=== PATIENT | male | born 1990 | race Caucasian/White ===

== ENCOUNTER → 2020-06-17 13:43 | Outpatient (BNVA) | payer SELFPAY | PROVIDERS: Visit Provider Physician Assistant | DX: Z02.79 Encounter for issue of other medical certificate (principal) ==

== ENCOUNTER → 2022-04-01 11:06 | Outpatient (BNVA) | payer SELFPAY | PROVIDERS: Visit Provider Physician Assistant | DX: Z02.79 Encounter for issue of other medical certificate (principal) ==

== ENCOUNTER 2022-04-21 09:19 | Emergency (ER) | payer OTHER, SELFPAY ==
--- NOTE | ~2022-04-21 | CT_ITS ---
EXAMINATION: CT ABDOMEN AND PELVIS WITHOUT CONTRAST CLINICAL INFORMATION: Lower abdominal/left-sided pain COMPARISON: None TECHNIQUE: Multidetector volumetric imaging was performed from the superior aspect of the liver through the pubic symphysis. Sagittal and coronal reformatted images were obtained on the technologist's workstation. This CT examination was performed using dose optimization techniques as appropriate, variously including the following: *Automated exposure control *Adjustment of mA and/or kV according to patient size (this includes techniques or standardized protocols for targeted exams where dose is matched to indication/reason for exam; i.e. extremities or head) *Use of iterative reconstruction technique DLP: 785 mGy-cm FINDINGS: LUNG BASES: The visualized lung bases are unremarkable. LIVER, GALLBLADDER, AND BILIARY TREE: The liver is enlarged at 18.7 cm in greatest length and demonstrates decreased attenuation consistent with hepatic steatosis. Focal fatty sparing adjacent to the gallbladder fossa is noted. No focal hepatic lesion or biliary ductal dilatation is present. The gallbladder is unremarkable with no evidence of radiopaque gallstones, gallbladder wall thickening, or obvious pericholecystic inflammatory changes. PANCREAS: Unremarkable. SPLEEN: Unremarkable. ADRENAL GLANDS: Unremarkable. KIDNEYS AND URETERS: The kidneys are normal in size, shape, and attenuation. No hydronephrosis, hydroureter, or calculi seen. No perinephric stranding. BLADDER: Unremarkable. GASTROINTESTINAL TRACT: The small and large bowel are unremarkable aside from a few scattered colonic diverticula without diverticulitis. The appendix is unremarkable. ABDOMINAL WALL: No significant hernia is appreciated. LYMPH NODES: No retroperitoneal lymphadenopathy is seen. VASCULAR: Unremarkable. PELVIC VISCERA: Prostate and seminal vesicles appear normal. OSSEOUS STRUCTURES: Unremarkable. CT/CT abdomen pelvis wo IV con IMPRESSION: 1. A cause for the patient's left lower quadrant pain has not been found. 2. Incidental note made of an enlarged fatty liver and a few scattered colonic diverticula without diverticulitis. Fleischner guidelines were followed.
[2022-04-21 09:29] VITALS: BP 168/93; PULSE 115; RESP 16; TEMP 36.8; O2SAT 98; BMI 38.9
--- NOTE | 2022-04-21 09:55 | ED.MALEGU ---
HPI - Male Genitourinary General Chief complaint: Urogenital-Male Stated complaint: bladder pain Time Seen by Provider: 04/21/22 09:41 Source: patient Mode of arrival: ambulatory Limitations: no limitations History of Present Illness HPI Narrative: This is 31-year-old male with history of UTIs who presents with lower abdominal discomfort since yesterday. Patient also reported some blood in his semen noted after ejaculation. No back pain, dysuria, frequency or urgency of urine. No fevers, chills, vomiting, diarrhea or constipation. No testicular pain or penile pain. No rashes or lesions. Patient is sexually active with 1 female partner. No new sexual partners. He describes the pain as pressure which is worsened with urination Related Data Allergies Allergy/AdvReac Type Severity Reaction Status Date / Time No Known Allergies Allergy Unverified 03/12/20 16:14 Review of Systems Review of Systems: Yes all other systems are reviewed and are negative Constitutional: Constitutional: Reports no additional constitutional complaints, Denies body ache(s), Denies chills, Denies fever(s), Denies headache(s) and Denies weakness Eyes: Eyes: Reports no additional eye complaints and Denies change in vision ENT: Reports system reviewed and no additional complaints, except as documented, Denies dizziness, Denies headache(s), Denies nasal congestion, Denies nasal discharge and Denies neck pain Cardiovascular: Cardiovascular: Reports no additional cardiovascular complaints, Denies chest pain, Denies leg edema and Denies dyspnea Respiratory: Respiratory: Reports no additional respiratory complaints, Denies cough and Denies dyspnea Gastrointestinal: Gastrointestinal: Reports no additional gastrointestinal complaints, Reports abdominal pain, Denies diarrhea, Denies nausea and Denies vomiting Genitourinary: Genitourinary: Denies urinary incontinence Musculoskeletal: Musculoskeletal: Reports no additional musculoskeletal complaints, Denies back pain, Denies arthralgias, Denies joint swelling, Denies neck pain, Denies numbness and Denies tingling Integumentary/Breasts: Skin/Breast: Reports system reviewed and no additional complaints, except as docu and Denies rash Neurologic: Reports system reviewed and no additional complaints, except as documented, Denies Abnormal speech present, Denies dizziness, Denies headache(s), Denies numbness, Denies tingling and Denies weakness [facility] Past Medical History Attestation statement: The following information was validated with the patient. Source: old records reviewed and nursing notes reviewed Social History Social History Advance Directives: No Advance Directives Information Provided: No Physical Exam Vital Signs: Vital Signs: Last Vital Signs Temp 98.2 F 04/21/22 09:29 Pulse 90 04/21/22 10:43 Resp 14 04/21/22 10:43 BP 147/91 H 04/21/22 10:43 Pulse Ox 99 04/21/22 10:43 O2 Del Method 04/21/22 10:43 BMI result Body Mass Index 38.9 Const: General: cooperative, healthy appearing, comfortable and no acute distress Orientation/consciousness: patient oriented x3 Limitations: no limitations HEENT: Head: Yes normal to inspection Ears: hearing grossly normal bilaterally General nose exam: Normal external nose present Face and sinus: Yes normal facial exam Mouth: Normal oral and palatal mucosa present Throat: Yes posterior oropharynx normal Eyes: General: appearance normal, both eyes and all related structures Pupils: Equal, round and reactive pupils present Neck: Neck: Yes normal visual inspection Chest: Chest palpation & inspection: normal inspection of the chest Resp: Effort & Inspection: normal respiratory effort Auscultation: clear to auscultation bilaterally Cardio: Rate: regular rate Rhythm: regular rhythm Peripheral pulses: Peripheral pulses 2+ throughout GI: Inspection: Yes normal to inspection Palpation (GI): Soft to palpation and Tenderness to palpation present (GI) suprapubicly Auscultation: normal bowel sounds : General: Yes no CVA tenderness Back/Spine/Pelvis: Back: no CVA tenderness Thoracic/Lumbar Spine: thoracic and lumbar spine normal to inspection Skin: General skin exam: no rashes or lesions noted Neuro: General: patient oriented x3, no focal motor deficits and normal sensation to monofilament Cranial nerves: Yes Equal, round and reactive pupils present Cognition (Neuro): normal cognition Speech: No Abnormal speech present Gait exam (Neuro): Normal gait present Motor exam (neuro): 5/5 motor strength present throughout Extrem: General: Yes normal to inspection Course Course Course Narrative: Labs unremarkable. UA shows no signs infection. Will check CT abdomen and pelvis to rule out renal colic, appendicitis Reevaluation(s) Reevaluation #1: 1230-CT abdomen pelvis show no acute finding. Appendix is visualized and unremarkable. Testing for gonorrhea and chlamydia were sent. Patient is aware that he will need to return if his testing is positive. He is not concern for STD exposure and he does not want to be treated prophylactically. Reviewed worrisome signs and symptoms of when to return to the emergency room. Comfortable plan for discharge home. MDM - Male Genitourinary MDM Narrative Medical decision making narrative: 31-year-old male here with suprapubic pressure and discomfort with urination with some blood noted in his semen after ejaculation yesterday. History of UTIs and feels similar to this. No CVA tenderness. Abdomen is and nonfocal. Patient overall nontoxic. No reports of colicky pain or CVA tenderness to suggest renal colic or pyelonephritis. Patient has low concern for STDs. He is in a monogamous relationship with 1 female partner with no new sexual partners. However will check CT and she, UA, labs. Consider STI, UTI Medical Records Attestation: I reviewed the patient's medical records. Lab Data Attestation: I reviewed the patient's lab results. Result diagrams: 04/21/22 10:04/21/22 10: Labs: Lab Results 04/21/22 04/21/22 04/21/22 Range/Units 10: 10: 10:27 WBC 6.7 (4.8-10.8) X10*3/uL RBC 5.36 (4.60-5.80) X10*6/uL Hgb 14.6 (14.0-18.0) g/dl Hct 45.4 (42.0-52.0) % MCV 84.7 (80.0-98.0) fL MCH 27.2 (27.0-33.0) pg MCHC 32.2 (31.0-36.0) g/dl RDW 12.3 (11.0-16.0) % Plt Count 304 (160-400) X10*3/uL MPV 11.0 (9.4-12.4) fL Immature Gran % (Auto) 0.5 H (0.0-0.4) % Neut % (Auto) 62.8 (45-73) % Lymph % (Auto) 29.9 (20-40) % Douglas % (Auto) 5.4 (2-11) % Eos % (Auto) 0.6 (0-4) % Baso % (Auto) 0.8 (0-2) % Lymph # (Auto) 2.0 (1.2-4.9) X10*3/uL Douglas # (Auto) 0.4 (0.1-1.2) X10*3/uL Eos # (Auto) 0.0 (0.0-0.4) X10*3/uL Baso # (Auto) 0.1 (0.0-0.2) X10*3/uL Abs Immat Gran (auto) 0.03 (0.00-0.03) X10*3/uL Absolute Neuts (auto) 4.2 (2.0-8.3) x10*3/uL Absolute Nucleated RBC 0.000 (0.0-0.012) X10*3/uL Nucleated RBC % (auto) 0.0 (0.0-0.2) /100WBC Sodium 141 (135-145) mmol/L Potassium 4.0 (3.3-5.1) mmol/L Chloride 106 (96-108) mmol/L Carbon Dioxide 22 (22-29) mmol/L Anion Gap 17 (12-20) BUN 14 (9-16) mg/dL Creatinine 1.15 (0.5-1.4) mg/dL Estim Creat Clear Calc 97.4 Estimated GFR > 60 Random Glucose 138 H (60-115) mg/dL Calcium 10.0 (8.4-10.2) mg/dL Urine Color Yellow Urine Appearance Clear Urine pH 5.5 (5.0-9.0) Ur Specific [place] 1.020 (1.005-1.025) Urine Protein Negative (Neg-Trace) mg/dL Urine Glucose (UA) Negative (Negative) mg/dL Urine Ketones Negative (Negative) mg/dL Urine Blood Negative (Negative) Urine Nitrite Negative (Negative) Ur Leukocyte Esterase Negative (Negative) Chlam trachomat DNA PCR N.gonorrhoeae DNA (PCR) 04/21/22 Range/Units 10:27 WBC (4.8-10.8) X10*3/uL RBC (4.60-5.80) X10*6/uL Hgb (14.0-18.0) g/dl Hct (42.0-52.0) % MCV (80.0-98.0) fL MCH (27.0-33.0) pg MCHC (31.0-36.0) g/dl RDW (11.0-16.0) % Plt Count (160-400) X10*3/uL MPV (9.4-12.4) fL Immature Gran % (Auto) (0.0-0.4) % Neut % (Auto) (45-73) % Lymph % (Auto) (20-40) % Douglas % (Auto) (2-11) % Eos % (Auto) (0-4) % Baso % (Auto) (0-2) % Lymph # (Auto) (1.2-4.9) X10*3/uL Douglas # (Auto) (0.1-1.2) X10*3/uL Eos # (Auto) (0.0-0.4) X10*3/uL Baso # (Auto) (0.0-0.2) X10*3/uL Abs Immat Gran (auto) (0.00-0.03) X10*3/uL Absolute Neuts (auto) (2.0-8.3) x10*3/uL Absolute Nucleated RBC (0.0-0.012) X10*3/uL Nucleated RBC % (auto) (0.0-0.2) /100WBC Sodium (135-145) mmol/L Potassium (3.3-5.1) mmol/L Chloride (96-108) mmol/L Carbon Dioxide (22-29) mmol/L Anion Gap (12-20) BUN (9-16) mg/dL Creatinine (0.5-1.4) mg/dL Estim Creat Clear Calc Estimated GFR Random Glucose (60-115) mg/dL Calcium (8.4-10.2) mg/dL Urine Color Urine Appearance Urine pH (5.0-9.0) Ur Specific [place] (1.005-1.025) Urine Protein (Neg-Trace) mg/dL Urine Glucose (UA) (Negative) mg/dL Urine Ketones (Negative) mg/dL Urine Blood (Negative) Urine Nitrite (Negative) Ur Leukocyte Esterase (Negative) Chlam trachomat DNA PCR TNP N.gonorrhoeae DNA (PCR) TNP Imaging Data CT scan - abdomen: Attestation: I personally reviewed and interpreted this imaging study as follows: Radiologist's impression: FINDINGS: LUNG BASES: The visualized lung bases are unremarkable.? LIVER, GALLBLADDER, AND BILIARY TREE: The liver is enlarged at 18.7 cm in greatest length and demonstrates decreased attenuation consistent with hepatic steatosis. Focal fatty sparing adjacent to the gallbladder fossa is noted.? No focal hepatic lesion or biliary ductal dilatation is present. The gallbladder is unremarkable with no evidence of radiopaque gallstones, gallbladder wall thickening, or obvious pericholecystic inflammatory changes.? PANCREAS: Unremarkable.? SPLEEN: Unremarkable.? ADRENAL GLANDS: Unremarkable.? KIDNEYS AND URETERS: The kidneys are normal in size, shape, and attenuation. No hydronephrosis, hydroureter, or calculi seen. No perinephric stranding. ? BLADDER: Unremarkable.? GASTROINTESTINAL TRACT: The small and large bowel are unremarkable aside from a few scattered colonic diverticula without diverticulitis. The appendix is unremarkable.? ABDOMINAL WALL: No significant hernia is appreciated.? LYMPH NODES: No retroperitoneal lymphadenopathy is seen. VASCULAR: Unremarkable. PELVIC VISCERA: Prostate and seminal vesicles appear normal.? OSSEOUS STRUCTURES: Unremarkable.? CT/CT abdomen pelvis wo IV con IMPRESSION: 1.? A cause for the patient's left lower quadrant pain has not been found. 2.? Incidental note made of an enlarged fatty liver and a few scattered colonic diverticula without diverticulitis. Discharge Plan Discharge Clinical Impression: Suprapubic pain Patient Disposition: Home, Self-Care Instructions: Pelvic Pain in Men (ED) Additional Instructions: Your lab work, urine testing and CT scan look normal. We did send testing for STDs but these are still pending. At this time it you declined treatment as you are not concern for STDs. You are aware that you may need to return for treatment if you are positive Come back for worsening pain, fever or vomiting Referrals: Michael Lara MD [Primary Care Provider] - 1 week
[2022-04-21 10:35] LABS: Basophils Absolute Auto 0.1 X10*3/uL (0.0-0.2); Basophils Percent Auto 0.8 % (0-2); Eosinophils Percent Auto 0.6 % (0-4); Hematocrit 45.4 % (42.0-52.0); Hemoglobin 14.6 g/dl (14.0-18.0); Imm Gran Abs Auto 0.03 X10*3/uL (0.00-0.03); Imm Gran Pct Auto 0.5 % (0.0-0.4); Lymphocytes Percent Auto 29.9 % (20-40); MANUAL DIFF FLAG NO; Mean Corpuscular HGB Conc 32.2 g/dl (31.0-36.0); Mean Corpuscular Hemoglobin 27.2 pg (27.0-33.0); Mean Corpuscular Volume 84.7 fL (80.0-98.0); Monocytes Absolute Auto 0.4 X10*3/uL (0.1-1.2); Monocytes Percent Auto 5.4 % (2-11); Neutrophils Absolute Auto 4.2 x10*3/uL (2.0-8.3); Neutrophils Percent Auto 62.8 % (45-73); Platelet Count 304 X10*3/uL (160-400); Red Blood Count 5.36 X10*6/uL (4.60-5.80); Red Cell Distribution Width 12.3 % (11.0-16.0); White Blood Count 6.7 X10*3/uL (4.8-10.8)
[2022-04-21 10:43] VITALS: BP 147/91; PULSE 90; RESP 14; O2SAT 99
[2022-04-21 10:48] LABS: Appearance Urine Clear; Color Urine Yellow; Glucose Urine UA Negative (Negative); Leukocyte Esterase Urine Negative (Negative); Nitrite Urine Negative (Negative); PH 5.5 (5.0-9.0); Urine Blood Negative (Negative); Urine Ketones Negative (Negative); Urine Protein Negative (Neg-Trace)
[2022-04-21 10:55] LABS: Anion Gap 17 (12-20); Blood Urea Nitrogen 14 mg/dL (9-16); Carbon Dioxide 22 mmol/L (22-29); Chloride 106 mmol/L (96-108); Creatinine Clr Calc Pharmacy 97.4; Estimated Glomerular Filt Rate > 60; Glucose Random 138 mg/dL (60-115); Sodium 141 mmol/L (135-145)
[2022-04-21 13:51] LABS: CT PCR NOT DETECTED (Not Detect.); NG PCR NOT DETECTED (Not Detect.)
== END 2022-04-21 12:38 | disposition home or self-care (01) ==
PROVIDERS: Nurse Practitioner Family; Emergency Provider Emergency Medicine; PCP Internal Medicine
DX: R10.33 Periumbilical pain (principal); R39.89 Other symptoms and signs involving the genitourinary system; Z79.899 Other long term (current) drug therapy
CPT/HCPCS: 36415; 74176; 80048; 81003; 85025; 87491; 87591; 99283; 99284

== ENCOUNTER 2024-07-17 18:40 | Emergency (ER) | payer MEDICAID, SELFPAY ==
--- NOTE | 2024-07-17 19:06 | ED_ITS ---
HPI - General Adult General Chief complaint: Skin/Abscess/Foreign Body Stated complaint: Rt swollen thumb/no inj Time Seen by Provider: 07/17/24 19:14 Source: patient, RN notes reviewed and old records reviewed Mode of arrival: ambulatory Limitations: no limitations History of Present Illness ED Provider: Tc [facility] narrative: Patient is a 34-year-old male presenting to the ED with complaint of right thumb swelling, denies injury, complains of pain and redness x 3 days. Thinks he has infection from biting his nails. Denies fevers, drainage from area. MD complaint: thumb pain Onset (ago): day(s) Treatments prior to arrival: none Related Data Previous Rx's ?Medication ?Instructions ?Recorded cephalexin 500 mg capsule 500 mg PO QID 5 days #20 caps 07/17/24 Allergies Allergy/AdvReac Type Severity Reaction Status Date / Time No Known Allergies Allergy Verified 07/17/24 19:08 Review of Systems 2 Review of Systems: As per HPI Yes all other systems are reviewed and are negative Constitutional: Constitutional: Reports as per HPI [facility] Social History Social History Advance Directives: No Advance Directives Information Provided: No Do you have a plan to hurt others: No Plan Physical Exam ED Vital Signs: Vital Signs - 24 hr 07/17/24 19:07 Temperature 97.8 F Pulse Rate 101 H Respiratory Rate 18 Blood Pressure 157/99 H Pulse Oximetry 98 Oxygen Delivery Method Room Air BMI result Body Mass Index 38.4 Vital signs have been reviewed and appear to be correct. Blood pressure normal. Heart rate normal. Respiratory rate normal. Temperature normal. Oxygen saturation normal. Const General: cooperative, healthy appearing and no acute distress Orientation/consciousness: oriented to person, oriented to place, oriented to time and patient oriented x3 Limitations: no limitations HENMT Head: Yes normocephalic and Yes atraumatic Ears: external ears normal General nose exam: Normal external nose present Face and sinus: Yes face symmetric Mouth: oropharynx normal and moist mucous membranes Throat: Yes uvula midline Eyes Pupils: Equal, round and reactive pupils present Neck Neck: Yes normal visual inspection and Yes supple Resp Effort & Inspection: normal respiratory effort and able to speak in complete sentences Auscultation: clear to auscultation bilaterally Cardio Rate: regular rate Rhythm: regular rhythm Heart sounds: S1 normal heart sound present and S2 normal heart sound present GI Palpation (GI): Soft to palpation and nontender Auscultation: normoactive bowel sounds General: Yes no CVA tenderness Back/Spine/Pelvis Back: no CVA tenderness Skin General skin exam: elasticity normal and turgor normal Neuro General: oriented to person, oriented to place, oriented to time, patient oriented x3, moves all extremities, no focal motor deficits and CN's II-XI intact bilaterally Cranial nerves: Yes Equal, round and reactive pupils present Cognition (Neuro): normal cognition Extrem General: Yes full ROM, Yes no pedal edema and Yes no calf tenderness Hand/finger images: 2 1. erythema, swelling, fluctuance R thumb Psych Mental Status: mental status grossly normal Affect: normal affect Thought process: Normal thought process present Medications Administered Discontinued Medications Generic Name Dose Route Start Last Admin Trade Name Freq PRN Reason Stop Dose Admin Lidocaine HCl 1 appl 07/17/24 19:09 07/17/24 19:12 Lidocaine 4 % Cream Kit TOPICAL 07/17/24 19:10 1 appl ONCE ONE Administration Protocol Medical Decision Making Medical Decision Making [facility] Narrative: Patient is a 34-year-old male presenting to the ED with complaint of right thumb swelling, denies injury. On exam patient is awake, A+Ox3, VS WNL, afebrile, normal neurological exam without focal deficits, physical exam findings as above. Given reported symptoms and physical exam findings, initial differential includes but is not limited to paronychia, felon, cellulitis. Physical exam findings consistent with paronychia. Drained as per procedure note. Patient placed on keflex, advised to soak thumb in warm salt water several times per day. Advised to avoid nail biting. Follow up with PCP as needed. Return precautions discussed. Patient verbalized understanding of and agreement with plan. Differential Diagnosis Differential Diagnoses: The differential diagnosis associated with the presentation includes As per MDM External Record Review External record reviewed: Inpatient record, Office record and Outpatient record Prescription Management I considered prescription management with: Antibiotic Discharge Plan Discharge Clinical Impression: Acute paronychia of right thumb Patient Disposition: Home, Self-Care Instructions: Paronychia (ED) Additional Instructions: You were evaluated in the emergency department today for pain and swelling to your thumb. Your symptoms are due to a paronychia, which is an infection of the skin around your nail. You are being treated with a course of antibiotics, complete the full course as prescribed even if your symptoms improve. We also recommend that you soak your thumb in warm salt water several times daily for 10-15 minutes. Do not bite your nails, as this can cause this type on infection. Assess the area at least once per day for any worsening redness, swelling, thick yellow drainage, or redness streaking up your hand. Return to the emergency department if any of these occur or you develop fever. Follow-up with your primary care provider as needed. Prescriptions: New cephalexin 500 mg capsule 500 mg PO QID 5 Days Qty: 20 0RF Print Language: American
[2024-07-17 19:07] VITALS: BP 157/99; PULSE 101; RESP 18; TEMP 36.6; O2SAT 98; BMI 38.4
[2024-07-17] MEDS: Lidocaine 4 % Cream KIT 1 APPL TOPICAL (19:12)
--- NOTE | 2024-07-17 19:14 | PC.NURSE ---
LMX cream applied to right thumb RME to drain area and dc from triage.
[2024-07-17 20:06] VITALS: BP 157/99; PULSE 101; RESP 18; TEMP 36.6; O2SAT 98
== END 2024-07-17 20:07 | disposition home or self-care (01) ==
PROVIDERS: Emergency Provider Emergency Medicine Emergency Medical Services
DX: L03.011 Cellulitis of right finger (principal); M79.644 Pain in right finger(s)
CPT/HCPCS: 99282; 99283

== ENCOUNTER 2024-11-05 20:04 | Emergency (ER) | payer MEDICAID, SELFPAY ==
--- NOTE | ~2024-11-05 | CT_ITS ---
CLINICAL HISTORY: Hematuria, left lower abd pain, R O kidney stone CT abdomen and pelvis without contrast Comparison: 04/21/2022 Findings: Lung bases clear. No acute bony abnormalities. Fatty infiltration of the liver without focal abnormality. Pancreas, Spleen and adrenal glands unremarkable. Gallbladder within normal limits. Punctate nonobstructing right renal stone. No bilateral ureteral stone or hydronephrosis. Probable underlying renal cysts not well visualized. No evidence for aortic aneurysm. No free fluid or adenopathy in the pelvis. No diverticulitis. Appendix unremarkable. Impression: No acute processes This document has been electronically signed by: Jeff Sánchez MD on 11/06/2024 00:48:02
[2024-11-05 20:22] VITALS: BP 147/96; PULSE 89; RESP 20; TEMP 36.4; O2SAT 96; BMI 40.2
--- NOTE | 2024-11-05 20:22 | ED.GENADULT ---
HPI - General Adult General Chief complaint: General Medical Stated complaint: cyst on upper back / bladder infection Time Seen by Provider: 11/05/24 23:33 Source: patient Mode of arrival: ambulatory Limitations: no limitations History of Present Illness ED Provider: DR. Yip HPI narrative: 34-year-old male came in for evaluation of hematuria, feeling bladder pressure when urinating, no urethral discharge, sexually active with 1 partner his , no discharge, no concern of STI, patient also been having pain in the left lower quadrant area has been constant for the past 3 days. No nausea, no vomiting, no diarrhea, able to pass gas from people, never had any intra-abdominal surgery, no history of kidney stone. Patient also stated that he has been getting cyst head the coccyx area that he has been draining it. Related Data Previous Rx's ?Medication ?Instructions ?Recorded cephalexin 500 mg capsule 500 mg PO QID 5 days #20 caps 07/17/24 Allergies Allergy/AdvReac Type Severity Reaction Status Date / Time No Known Allergies Allergy Verified 11/05/24 20:25 Review of Systems Review of Systems: All other systems are reviewed and are negative Constitutional: Reports as per HPI and Reports no additional constitutional complaints Eyes: Reports as per HPI and Reports no additional eye complaints Reports system reviewed and no additional complaints, except as documented Cardiovascular: Reports as per HPI and Reports no additional cardiovascular complaints Respiratory: Reports as per HPI and Reports no additional respiratory complaints Gastrointestinal: Reports as per HPI and Reports no additional gastrointestinal complaints Genitourinary: Reports no additional female genitourinary complaints Musculoskeletal: Reports no additional musculoskeletal complaints Skin/Breast: Reports system reviewed and no additional complaints, except as docu Psychiatric: Reports no additional psychiatric complaints Endocrine: Reports no additional endocrine complaints Hematologic/Lymphatic: Reports no additional hematologic/lymphatic complaints Allergic/Immunologic: Reports no additional allergic/immunologic complaints Reports system reviewed and no additional complaints, except as documented and Reports Abnormal speech present [facility] Social History Social History Advance Directives: No Advance Directives Information Provided: Yes Do you have a plan to hurt others: No Plan Physical Exam ED Vital Signs: Vital Signs - 24 hr 11/05/24 20:22 11/06/24 00:07 Temperature 97.6 F 98.9 F Pulse Rate 89 71 Respiratory Rate 20 16 Blood Pressure 147/96 H 144/96 H Pulse Oximetry 96 99 Oxygen Delivery Method Room Air Room Air BMI result Body Mass Index 40.2 Vital signs have been reviewed and appear to be correct. Blood pressure elevated. Heart rate normal. Respiratory rate normal. Temperature normal. Oxygen saturation normal. Appearance: Alert. Oriented X3. No acute distress. Head: Normal external exam. Normocephalic. Atraumatic. No Pugh signs noted. No raccoon eyes noted Eyes: PERRLA. EOMI. Conjunctiva and sclera normal. Eyelids normal. ENT: TM's Normal. Pharynx normal. Uvula midline. Moist mucous membranes. No trismus noted. No drooling noted. No muffled voice noted. Neck: Normal inspection. Neck supple. FROM. No adenopathy. Thyroid Normal. No meningeal signs. No neck mass noted. CVS: Normal heart rate and rhythm. Heart sound normal. No murmurs noted. Pulses normal throughout. Respiratory: No respiratory distress. Painless inspiration. Breath sounds normal. No wheezes/rales/rhonchi noted. Chest nontender. No accessory muscle usage noted or decreased air movement noted. Abdomen: Soft and nontender. Bowel sounds normal in all 4 quadrants. No distention noted. No organomegaly noted. No visible injury noted. Rectal exam: there is no pilonidal cyst or abscess. Back: No CVA tenderness. Full range of motion noted. Skin: Skin warm and dry. Normal skin color. Normal skin turgor. No rashes/lesions/lacerations noted. Extremities: No lower extremity edema. Extremities exhibit normal range of motion. Extremities nontender. Neuro: Oriented X 3. Cranial nerve exam: II-XII are grossly intact No motor deficit. No sensory deficit. Reflexes normal. Course Course Course Narrative: This is a rapid medical exam performed by Vernell Montez NP: Additional HPI, ROS, PE not included below will be deferred to primary provider. Patient is a 34y/o M presenting with complaint of hematuria since yesterday, LLQ/groin pain. Also pilonidal abscess. Denies fevers, back pain. Plan: UA, CT NG Reevaluation(s) Reevaluation #1: No concern of STI patient is a monogamous relationship with no risk for STI, no kidney stone. Discharge to follow-up with urology for further workup of hematuria. Recurrent pilonidal cyst, on today's exam is not drainable or fluctuant. Time: 01:30 Medical Decision Making Differential Diagnosis Differential Diagnoses: The differential diagnosis associated with the presentation includes (UTI, STI, kidney stone, pyelonephritis, electrolyte derangement, severe anemia.) Admission/Observation Consideration of admission/observation: Escalation of care including admission/observation considered Lab Data MDM Lab Attestation statement: I reviewed the patient's lab results. 11/06/24 00:15 11/06/24 00:15 Labs: Lab Results 11/06/24 Range/Units 00:15 WBC 8.3 (4.8-10.8) X10*3/uL RBC 5.17 (4.60-5.80) X10*6/uL Hgb 14.5 (14.0-18.0) g/dl Hct 43.2 (42.0-52.0) % MCV 83.6 (80.0-98.0) fL MCH 28.0 (27.0-33.0) pg MCHC 33.6 (31.0-36.0) g/dl RDW 12.4 (11.0-16.0) % Plt Count 326 (160-400) X10*3/uL MPV 11.1 (9.4-12.4) fL Immature Gran % (Auto) 0.6 H (0.0-0.4) % Neut % (Auto) 51.1 (45-73) % Lymph % (Auto) 38.9 (20-40) % [place] % (Auto) 7.0 (2-11) % Eos % (Auto) 1.4 (0-4) % Baso % (Auto) 1.0 (0-2) % Lymph # (Auto) 3.2 (1.2-4.9) X10*3/uL [place] # (Auto) 0.6 (0.1-1.2) X10*3/uL Eos # (Auto) 0.1 (0.0-0.4) X10*3/uL Baso # (Auto) 0.1 (0.0-0.2) X10*3/uL Abs Immat Gran (auto) 0.05 H (0.00-0.03) X10*3/uL Absolute Neuts (auto) 4.3 (2.0-8.3) x10*3/uL Absolute Nucleated RBC 0.000 (0.0-0.012) X10*3/uL Nucleated RBC % (auto) 0.0 (0.0-0.2) /100WBC Sodium 140 (135-145) mmol/L Potassium 3.9 (3.3-5.1) mmol/L Chloride 107 (96-108) mmol/L Carbon Dioxide 23 (22-29) mmol/L Anion Gap 14 (12-20) BUN 16 (9-16) mg/dL Creatinine 1.05 (0.5-1.4) mg/dL Estim Creat Clear Calc 101.9 Estimated GFR > 60 Random Glucose 118 H (60-115) mg/dL Calcium 10.1 (8.4-10.2) mg/dL Urine Color Yellow Urine Appearance Clear Urine pH 7.0 (5.0-9.0) Ur Specific [place] 1.015 (1.005-1.025) Urine Protein Negative (Neg-Trace) mg/dL Urine Glucose (UA) Negative (Negative) mg/dL Urine Ketones Negative (Negative) mg/dL Urine Blood Small (1+) H (Negative) Urine Nitrite Negative (Negative) Ur Leukocyte Esterase Negative (Negative) Urine RBC 11-20 H (0-2) /HPF Urine WBC 0-5 (0-5) /HPF Ur Squamous Epith Cells 0-2 (0-2) /HPF Urine Bacteria None Seen (None Seen) Hyaline Casts 0-2 (0-2) /LPF Independent Interpretation I performed an independent interpretation of an: CT Scan (Abdomen pelvis: No acute pathology.) Radiology Impression Discussion of test interpretation with radiology: I have reviewed the radiologist's reading. Discharge Plan Discharge Clinical Impression: Hematuria Patient Disposition: Home, Self-Care Instructions: Hematuria (ED) Prescriptions: No Action cephalexin 500 mg capsule 500 mg PO QID 5 Days Qty: 20 0RF Referrals: Eduar Sousa MD [Physician] - Print Language: Georgian
[2024-11-06 00:07] VITALS: BP 144/96; PULSE 71; RESP 16; TEMP 37.2; O2SAT 99
[2024-11-06 00:23] LABS: MANUAL DIFF FLAG NO
[2024-11-06 00:24] LABS: Basophils Absolute Auto 0.1 X10*3/uL (0.0-0.2); Eosinophils Absolute Auto 0.1 X10*3/uL (0.0-0.4); Eosinophils Percent Auto 1.4 % (0-4); Hematocrit 43.2 % (42.0-52.0); Hemoglobin 14.5 g/dl (14.0-18.0); Imm Gran Abs Auto 0.05 X10*3/uL (0.00-0.03); Imm Gran Pct Auto 0.6 % (0.0-0.4); Lymphocytes Absolute Auto 3.2 X10*3/uL (1.2-4.9); Lymphocytes Percent Auto 38.9 % (20-40); Mean Corpuscular HGB Conc 33.6 g/dl (31.0-36.0); Mean Corpuscular Volume 83.6 fL (80.0-98.0); Mean Platelet Volume 11.1 fL (9.4-12.4); Monocytes Absolute Auto 0.6 X10*3/uL (0.1-1.2); Neutrophils Absolute Auto 4.3 x10*3/uL (2.0-8.3); Neutrophils Percent Auto 51.1 % (45-73); Platelet Count 326 X10*3/uL (160-400); Red Blood Count 5.17 X10*6/uL (4.60-5.80); Red Cell Distribution Width 12.4 % (11.0-16.0); White Blood Count 8.3 X10*3/uL (4.8-10.8)
[2024-11-06 00:25] LABS: Appearance Urine Clear; Color Urine Yellow; Glucose Urine UA Negative (Negative); Leukocyte Esterase Urine Negative (Negative); Nitrite Urine Negative (Negative); Specific Gravity - Urine 1.015 (1.005-1.025); UMIC TRIGGER UACC YES; Urine Blood Small (1+) (Negative); Urine Ketones Negative (Negative); Urine Protein Negative (Neg-Trace)
[2024-11-06 00:39] LABS: Anion Gap 14 (12-20); Blood Urea Nitrogen 16 mg/dL (9-16); Calcium 10.1 mg/dL (8.4-10.2); Carbon Dioxide 23 mmol/L (22-29); Chloride 107 mmol/L (96-108); Creatinine Clr Calc Pharmacy 101.9; Estimated Glomerular Filt Rate > 60; Glucose Random 118 mg/dL (60-115); Potassium 3.9 mmol/L (3.3-5.1); Sodium 140 mmol/L (135-145)
[2024-11-06 01:26] LABS: Bacteria Urine None Seen (None Seen); Hyaline Casts Urine 0-2 /LPF (0-2); Squamous Epithelial Cell Urine 0-2 /HPF (0-2); WBC Urine 0-5 /HPF (0-5)
[2024-11-06 02:17] VITALS: BP 144/96; PULSE 71; RESP 16; TEMP 37.2; O2SAT 99
[2024-11-06 12:10] LABS: CT PCR NOT DETECTED (Not Detect.); NG PCR NOT DETECTED (Not Detect.)
== END 2024-11-06 02:18 | disposition home or self-care (01) ==
PROVIDERS: Registered Nurse Emergency; Emergency Provider Emergency Medicine
DX: R31.9 Hematuria, unspecified (principal); R10.32 Left lower quadrant pain
CPT/HCPCS: 36415; 74176; 80048; 81001; 85025; 87491; 87591; 99283; 99284

== ENCOUNTER → 2024-11-05 23:45 | Outpatient (BNV) | payer MEDICAID, SELFPAY | PROVIDERS: Emergency Provider Emergency Medicine; Visit Provider Radiology Diagnostic Radiology | DX: R10.32 Left lower quadrant pain (principal); R31.9 Hematuria, unspecified | CPT/HCPCS: 74176 ==

== ENCOUNTER 2024-11-28 09:10 | Emergency (ER) | payer MEDICAID, SELFPAY ==
--- NOTE | ~2024-11-28 | XR_ITS ---
EXAMINATION: XR KNEE, RIGHT CLINICAL INFORMATION: right knee pain COMPARISON: None available. TECHNIQUE: Four views of the right knee. FINDINGS: No fracture, dislocation, or suspicious bone lesion. Normal bone mineralization. Normal alignment. Joint spaces are preserved. No significant arthropathy. Numerous corticated osseous fragments abutting the tibial tuberosity is consistent with sequela of Alva Schlatter disease. No significant joint effusion. Soft tissues appear normal. XR/XR knee RT 4V IMPRESSION: 1. No acute findings of the right knee. No joint effusion. 2. Sequela of prior Alva-Schlatter's disease. Electronically signed by: Vargas Dover MD 11/28/2024 12:05 PM EDT
[2024-11-28 09:39] VITALS: BP 152/92; PULSE 82; RESP 18; TEMP 36.8; O2SAT 96; BMI 40.4
--- NOTE | 2024-11-28 11:00 | ED_ITS ---
HPI - Extremity Injury (Lower) General Chief Complaint: Extremity Injury, Lower Stated Complaint: R knee pain Time Seen by Provider: 11/28/24 10:50 Source: patient and old records reviewed Mode of arrival: ambulatory Limitations: no limitations History of Present Illness ED Provider: LEYLA RAMSAY Narrative: 34 yo male with PMH of R knee trauma after a significant fall never sought care who presents with isolated anterior R knee pain he does work and use his knees a lot. No rash, tick bites. Hurts to really bend the leg. He has not taken anything for it. He has no or eye symptoms. He denies travel/procedures and pain is isolated to anterior aspect of knee. No new trauma or falls. MD complaint: other (knee pain) Onset (ago): day(s) (3) Injury: Right: knee Type of Injury: other Place: home Severity: mild Relieving factors: immobilization Exacerbating factors: movement Context: other Associated symptoms: swelling Other symptoms: none Related Data Previous Rx's ?Medication ?Instructions ?Recorded cephalexin 500 mg capsule 500 mg PO QID 5 days #20 caps 07/17/24 cyclobenzaprine 10 mg tablet 10 mg PO TID PRN muscle spasm #20 11/28/24 tabs ibuprofen 600 mg tablet 600 mg PO Q6H PRN pain #30 tabs 11/28/24 Allergies Allergy/AdvReac Type Severity Reaction Status Date / Time No Known Allergies Allergy Verified 11/28/24 09:42 Review of Systems Review of Systems: Constitutional : No Fever, No Chills ENT/Mouth : No Ear Pain, No Hoarseness, No sore throat Eyes: No Eye Pain, No Swelling, No Redness, No Foreign Body Cardiovascular : No Chest Pain, No SOB Respiratory : No Cough, No Dyspnea Gastrointestinal : No Nausea, No Vomiting, No Diarrhea, No abdominal Pain Genitourinary : No Dysuria, No Hematuria Musculoskeletal : positive joint pain, No Myalgias, No Joint Swelling Skin : No Skin lacerations, No rash Neuro : No Weakness, No Numbness, No Loss of Consciousness, No Dizziness, No Headache All other systems reviewed and are negative [facility] Past Medical History Attestation statement: The following information was validated with the patient. Source: old records reviewed Medical History No pertinent past medical history Social History Social History (Updated 11/28/24 @ 11:25 by Cee Patrick DO) Patient Tobacco Use Status: Never used Tobacco Advance Directives: No Advance Directives Information Provided: Yes Physical Exam Vital Signs: Vital Signs: Last Vital Signs Temp 98.2 F 11/28/24 09:39 Pulse 82 11/28/24 09:39 Resp 18 11/28/24 09:39 BP 152/92 H 11/28/24 09:39 Pulse Ox 96 11/28/24 09:39 BMI result Body Mass Index 40.4 Appearance: Alert. Oriented X3. No acute distress. Eyes: Pupils equal, round and reactive to light. ENT: Pharynx normal. Neck: Normal inspection. Neck supple. CVS: Normal heart rate and rhythm. Pulses normal. Respiratory: No respiratory distress. Breath sounds normal. Abdomen: Soft and nontender. Skin: Skin warm and dry. Normal skin color. Normal skin turgor. Extremities: No lower extremity edema. ttp over R knee prepatellar bursa and mild swelling but no redness/infection can plantar and dorsiflex both quad and p atella tendon appear intact Neuro: Oriented X 3. No motor deficit. No sensory deficit. CN2-12 intact Medical Decision Making Medical Decision Making MDM Narrative: 34 yo male isolated anterior R knee pain with prior old injury but no new trauma no signs of infection or DVT and no risk factors. NO tick bite at this time he declines crutches will follow up radiology read, start keli wrap - work note and supportive medications. Return precautions given. Suspect bursitis vs strain/vs old injury. Differential Diagnosis Differential Diagnoses: The differential diagnosis associated with the presentation includes prepatellar bursitis, arthralgia, strain Admission/Observation Consideration of admission/observation: Escalation of care including admission/observation considered can be managed as outpatient with PCP follow up Independent Interpretation I performed an independent interpretation of an: Plain X-Ray (fragment noted but no other injury suspect this is old) Radiology Impression Discussion of test interpretation with radiology: I have reviewed the radiologist's reading. Prescription Management I considered prescription management with: Pain Medication and Other Discharge Plan Discharge Clinical Impression: Injury, knee Qualifiers: Encounter type: initial encounter Laterality: right Qualified Code(s): S89.91XA - Unspecified injury of right lower leg, initial encounter Bursitis Qualifiers: Bursitis location: knee Knee bursitis location: prepatellar bursitis Laterality: right Qualified Code(s): M70.41 - Prepatellar bursitis, right knee Patient Disposition: Home, Self-Care Instructions: Knee Bursitis (ED) Additional Instructions: i will call you later today with final read please follow up with your doctor in regards to outpatient MRI there is a small fragment on the xray but this could be an old injury from your prior fall rest and keep leg elevated Prescriptions: New cyclobenzaprine 10 mg tablet 10 mg PO TID PRN (Reason: muscle spasm) Qty: 20 0RF ibuprofen 600 mg tablet 600 mg PO Q6H PRN (Reason: pain) Qty: 30 0RF No Action cephalexin 500 mg capsule 500 mg PO QID 5 Days Qty: 20 0RF Stand Alone Forms: Work/School Release Discharge Date/Time: 11/28/24 11:10 Print Language: Czech
--- OUTSIDE RECORDS SUMMARY | 2024-11-28 12:53 | XMS_ITS | Clinical Summary ---
Author Organization [facility] Address [address] [place] [address] Care Team Providers Care Audio Production Manager Name Role Phone Unavailable Primary Care Provider Unavailabl e Encounters Date Type Department Care Team Description 09/25/2024 Population Health Risk Score Critical [facility] Hospital Care [facility] (C3) Department [address] [place] [id number] Provider, Population Health Generic from Last 3 Months Social History Tobacco Use Types Packs/Day Years Used Date Smoking Tobacco: Never Assessed Sex and Gender Information Value Date Recorded Sex Assigned at Not on file Legal Sex Male 12:00 PM EDT Gender Identity Not on file Sexual Orientation Not on file Plan of Treatment Health Maintenance Due Date Last Done Comments Depression Screening 1990 HIV Screening 1990 SDOH Screening 1990 Disability Screening 1990 Alcohol/Substance Use Screening 2002 Tobacco Screening 2002 Family Planning (PISQ) 2005 Hepatitis C Screening 2008 DTaP/Tdap/Td Vaccines (1 - Tdap) 2009 Hepatitis B Vaccines (1 of 3 - 19+ 3-dose series) 2009 COVID-19 Vaccine (2023-2 5 season) 2024 Influenza Vaccine (Season Ended) 2025 Zoster Vaccines (1 of 2) 2040 RSV Patients and Pa tients Aged 60 years or older (1 - 1-dose 75+ series) 2065 HIB Vaccines Aged Out No longer eligi ble based on patient's age to complete this topic HPV Vaccines Aged Out No longer eligi ble based on patient's age to complete this topic Hepatitis A Vaccines Aged Out No long er eligible based on patient's age to complete this topic IPV Vaccines Aged Out No longer eligi ble based on patient's age to complete this topic Meningococcal B Vaccine Aged Out No l onger eligible based on patient's age to complete this topic Meningococcal Vaccine Aged Out No obed alicia eligible based on patient's age to complete this topic Pneumococcal Vaccine: Pediat rics (0 to 5 Years) and At-Risk Patients (6 to 49) Years) Aged Out No longer eligible b ased on patient's age to complete this topic RSV under 20 months Aged Out No longe r eligible based on patient's age to complete this topic Rotavirus Vaccines Aged Out No longer eligible based on patient's age to complete this topic
== END 2024-11-28 11:10 | disposition home or self-care (01) ==
PROVIDERS: Emergency Provider Emergency Medicine
DX: S89.91XA Unspecified injury of right lower leg, initial encounter (principal); M70.41 Prepatellar bursitis, right knee; X58.XXXA Exposure to other specified factors, initial encounter; Y93.9 Activity, unspecified; Y92.9 Unspecified place or not applicable; Y99.8 Other external cause status
CPT/HCPCS: 73564; 99281; 99283

== ENCOUNTER → 2024-11-28 10:15 | Outpatient (BNV) | payer MEDICAID, SELFPAY | PROVIDERS: Emergency Provider Emergency Medicine; Visit Provider Radiology Diagnostic Radiology | DX: M92.521 Juvenile osteochondrosis of tibia tubercle, right leg (principal) | CPT/HCPCS: 73564 ==

== ENCOUNTER 2025-01-02 11:02 | Outpatient (AMB) | payer MEDICAID, SELFPAY ==
--- NOTE | 2025-01-02 11:16 | A.OFFVIS_ITS ---
Intake Visit Reasons: Hematuria Intake Note: New Patient is present for hematuria Urology Rx:none Blood Thinners:none Imaging completed: 11/06/24 Terminal Manager Required: No Accompanied by: Self / Same As Patient Allergies No Known Allergies Allergy (Verified 01/02/25 11:16) HPI Comments Details: Satinder is a pleasant male. He is seen for the following urologic conditions - hematuria Single episode Resolution Seen in emergency room CT scan NAD Urine culture negative Treated with antibiotics Background significant cannabis intake via smoking Discussed use of filters or vaping P.r.n. follow-up [facility] Medical History No pertinent past medical history Social History (Updated 11/28/24 @ 11:25 by Cee Patrick DO) Patient Tobacco Use Status: Never used Tobacco Review of Systems Const Denies chills and Denies fever(s) Card Reports no additional complaints and Denies syncope Resp Denies cough GI Denies abdominal pain and Denies heartburn Reports as per HPI and Denies change in libido Neuro Denies syncope Psych Denies change in libido Endo Denies change in libido Physical Exam Const General: cooperative, healthy appearing, comfortable and no acute distress Orientation/consciousness: patient oriented x3 HEENT Face and sinus: Yes normal facial exam Mouth: moist mucous membranes Neck Neck: Yes normal visual inspection, Yes full ROM and Yes trachea midline Chest Chest palpation & inspection: normal inspection of the chest Resp Effort & Inspection: normal respiratory effort, able to speak in complete sentences and no respiratory distress GI Inspection: Yes normal to inspection Back/Spine/Pelvis Cervical Spine: normal cervical lordosis Thoracic/Lumbar Spine: thoracic and lumbar spine normal to inspection Skin General skin exam: no rashes or lesions noted Neuro General: patient oriented x3, gait normal, tone normal and moves all extremities Extrem General: Yes normal to inspection and Yes capillary refill normal Results AMB Urinalysis, Automated UA Leukoctes 0 Jimmie/uL Last Edit by JAIME Kimbrough on 01/02/25 13:25 UA Nitrite Last Edit by JAIME Kimbrough on 01/02/25 13:25 UA Urobilinogen 0.2 mg/dL Last Edit by JAIME Kimbrough on 01/02/25 13:2 5 UA Protein 0 mg/dL Last Edit by JAIME Kimbrough on 01/02/25 13:25 UA pH 5.5 Last Edit by Julien Stewart, [facility] on 01/02/25 13:25 UA Blood 0 Suleman/uL Last Edit by Julien Stewart, [facility] on 01/02/25 13:25 UA Specific [place] 1.015 Last Edit by Julien Stewart, [facility] on 01/02/25 13: 25 UA Ketone Last Edit by Julien Stewart, [facility] on 01/02/25 13:25 UA Bilirubin 0 mg/dL Last Edit by Julien Stewart, [facility] on 01/02/25 13:25 UA Glucose 0 mg/dL Last Edit by Julien Stewart, [facility] on 01/02/25 13:25 Assessment & Plan Assessment & Plan (1) Gross hematuria: Code(s): R31.0 - Gross hematuria Category: Medical Plan P.r.n. follow-up Orders: Orders AMB Urinalysis Automated Today Z13.9 - Encounter for screening, unspecified Patient Instructions: This note is constructed using voice recognition software. While every effort has been made to ensure accuracy settlement agent errors may have been included. Imaging studies, laboratory and physical exam results were discussed and reviewed in detail. No major barriers to patient understanding were identified. An opportunity to ask questions regarding the treatment plan was provided. All questions were answered. The patient expressed understanding and agreement with the above treatment plan. The patient is aware they should contact our office by phone for worsening of their current condition or the appearance of new urologic symptoms. Compliance is encouraged with any medications and followup testing that is ordered. It is a privilege to participate in the urologic care of your patient. If you have any questions or concerns regarding treatment for the above conditions, or other urologic issues, please do not hesitate to contact me. The office telephone contact is [phone]. Sincerely, Dr Eduar Sousa MD, [facility] - Urology Compassionate Specialist Care for the Genitourinary System Coding Level of Care Code New Pt Level 3 (05245) Diagnoses Gross hematuria R31.0
--- OUTSIDE RECORDS SUMMARY | 2025-01-02 11:45 | XMS_ITS | Clinical Summary ---
Author Organization [employer] Address [address] [place] [address] Care Team Providers Care Service Mechanic Name Role Phone Unavailable Primary Care Provider Unavailabl e Social History Tobacco Use Types Packs/Day Years [...] - 19+ 3-dose series) 2009 COVID-19 Vaccine ( - 2023-2 5 season) 2024 Influenza Vaccine (#1) 2025 Zoster Vaccines (1 of 2) 2040 [...] Years) and At-Risk Patients (6 to 49) Years Aged Out No longer eligible b ased on patient's age to complete this topic RSV under 20 months Aged Out No longe r eligible based on patient's age to complete this topic Rotavirus Vaccines Aged Out No longer eligible based on patient's age to complete this topic
== END 2025-01-02 12:37 | disposition home or self-care (01) ==
LOC: HO.HUSH 11:03
PROVIDERS: Visit Provider Urology
DX: Z13.9 Encounter for screening, unspecified (principal); R31.0 Gross hematuria
CPT/HCPCS: 99203

== ENCOUNTER → 2025-01-02 11:02 | Outpatient (BNVA) | payer MEDICAID, SELFPAY | PROVIDERS: Visit Provider Urology | DX: R31.0 Gross hematuria (principal) | CPT/HCPCS: 81003; 99202 ==

== ENCOUNTER 2025-03-14 23:57 | Emergency (ER) | payer MEDICAID, SELFPAY ==
--- NOTE | ~2025-03-14 | XR_ITS ---
CLINICAL HISTORY: pain --- Additional Notes or Special Instructions: constipation 1 view abdomen Comparison: CT/SR - CT ABDOMEN PELVIS WO IV CON - 11/05/24 23:47 EDT Findings: No pneumoperitoneum or pneumatosis. No abnormal calcifications. No acute fractures. IMPRESSION: The bowel gas pattern is within normal limits This document has been electronically signed by: Floridalma Bolton MD on 03/15/2025 09:07:21
[2025-03-15 00:03] VITALS: BP 161/91; PULSE 98; RESP 18; TEMP 36.7; O2SAT 97; BMI 40.7
--- NOTE | 2025-03-15 00:09 | ED_ITS ---
HPI - Male Genitourinary General Chief complaint: Urogenital-Male Stated complaint: Uro-Gen Male Time Seen by Provider: 03/15/25 04:33 Source: patient Limitations: no limitations History of Present Illness ED Provider: Martha Tracy PA-C HPI Narrative: 34-year-old male presents with left-sided lower abdominal pain. Pain originates in mid to left lower abdomen, with the radiation upward to the left flank at times. Pain worse with movement. Unable to describe the nature of his discomfort. Denies history of kidney stones, dysuria, hematuria, fever, nausea vomiting. Denies constipation or diarrhea. Denies testicular pain, swelling, redness, penile discharge or risk for STD. Patient states he has been assessed for similar presentation, there were no acute findings. Patient also followed up with the Urology after his last assessment. Patient continues to have intermittent symptoms. Related Data Previous Rx's ?Medication ?Instructions ?Recorded cephalexin 500 mg capsule 500 mg PO QID 5 days #20 cap s 07/17/24 cyclobenzaprine 10 mg tablet 10 mg PO TID PRN muscle s pasm #20 11/28/24 tabs ibuprofen 600 mg tablet 600 mg PO Q6H PRN pain #30 t abs 11/28/24 Allergies Allergy/AdvReac Type Severity Reaction Status Date / Time No Known Allergies Allergy Verified 03/15/25 00:07 Review of Systems 2 Review of Systems: Yes all other systems are reviewed and are negative Constitutional: Constitutional: Denies fatigue and Denies fever(s) Cardiovascular: Cardiovascular: Denies chest pain and Denies dyspnea Respiratory: Respiratory: Denies dyspnea Gastrointestinal: Gastrointestinal: Reports abdominal pain, Denies constipation, Denies diarrhea, Denies nausea and Denies vomiting Genitourinary: Genitourinary: Denies hematuria, Denies genital pain, Denies dysuria, Reports flank pain, Denies penile discharge, Denies scrotal swelling, Denies testicular mass and Denies testicular pain Musculoskeletal: Musculoskeletal: Denies back pain Endocrine: Endocrine: Denies fatigue PMFSH Past Medical History Attestation statement: The following information was validated with the patient. Medical History No pertinent past medical history Social History Social History (Updated 11/28/24 @ 11:25 by Cee Patrick DO) Patient Tobacco Use Status: Never used Tobacco Advance Directives: No Advance Directives Information Provided: Yes Do you have a plan to hurt others: No Plan Physical Exam 2 Vital Signs: Vital Signs: Last Vital Signs Temp 98.5 F 03/15/25 06:53 Pulse 87 03/15/25 06:53 Resp 16 03/15/25 06:53 BP 134/85 03/15/25 06:53 Pulse Ox 96 03/15/25 06:53 O2 Del Method Room Air 03/15/25 06:53 BMI result Body Mass Index 40.7 Const: Other: Alert well-appearing Orientation/consciousness: patient oriented x3 Resp: Effort & Inspection: normal respiratory effort Cardio: Other: Normal peripheral perfusion GI: Other: Soft, obese abdomen, nondistended nontender no guarding : General: Yes no CVA tenderness Back/Spine/Pelvis: Back: no CVA tenderness Skin: Other: Warm dry no rash Neuro: General: patient oriented x3, gait normal, no focal motor deficits and CN's II-XI intact bilaterally Psych: Other: Cooperative Course Course Course Narrative: This is a RME preformed in triage by Kerri Diaz PA-C. Date: 03/15/25, time 1210am. Patient presents with bilateral lower abdominal pain worse on the left side since yesterday. Reports several episodes of loose stools no vomiting. Reports intermittently does get loose stools but this is different from him. He is not sure whether or not has to do with the food that he ate yesterday. He is not endorsing any painful urination but feels like his bladder is full. He has had a UTI several years ago in the past. No history of catheterization. Denies any fevers or respiratory symptoms. When he has a bowel movement sometimes it makes it better sometimes it has no effect. No history of abdominal surgeries. He denying any urethral discharge no concern for STIs. No fevers. Work UP: abd labs and UA Will defer full ROS and PE to treating provider. Patient will continued to be monitored in the interim. Medical Decision Making Medical Decision Making [facility] Narrative: 34-year-old male presents with left-sided lower abdominal pain. Pain originates in mid to left lower abdomen, with the radiation upward to the left flank at times. Pain worse with movement. Unable to describe the nature of his discomfort. Denies history of kidney stones, dysuria, hematuria, fever, nausea vomiting. Denies constipation or diarrhea. Denies testicular pain, swelling, redness, penile discharge or risk for STD. Patient states he has been assessed for similar presentation, there were no acute findings. Patient also followed up with the Urology after his last assessment. Patient continues to have intermittent symptoms. No underlying chronic issues besides obesity History: Per patient I have considered the following differential diagnoses: Renal colic, panel we will nephritis, UTI, constipation, torsion, urethritis, epididymitis orchitis Plan: This is the 3rd assessment the patient has had in the emergency room, followed by another assessment by Urology, no acute findings in any the assessments. He did have hematuria at 1 visit. His exam was benign his labs were completed including a urinalysis, everything is normal, he does not require advanced imaging. I will obtain a KUB. He denies constipation, but we will see what his stool burden looks like. He has no related symptoms to suggest torsion, urethritis or epididymitis/orchitis, he does not require an ultrasound of the scrotal contents. I have independently reviewed the following tests: Labs: No leukocytosis, not anemic, no electrolyte abnormality, urine not infected no hematuria KUB:Findings: No pneumoperitoneum or pneumatosis. No abnormal calcifications. No acute fractures. IMPRESSION: The bowel gas pattern is within normal limits Differential Diagnosis Differential Diagnoses: The differential diagnosis associated with the presentation includes See medical decision-making Admission/Observation Consideration of admission/observation: Escalation of care including admission/observation considered Not applicable Lab Data MDM Lab Attestation statement: I reviewed the patient's lab results. 03/15/25 00:24 03/15/25 00:24 Labs: Lab Results 03/15/25 03/15/25 Range/Units 00:24 03:09 WBC 9.8 (4.8-10.8) X10*3/uL RBC 4.86 (4.60-5.80) X10*6/uL Hgb 13.5 L (14.0-18.0) g/dl Hct 40.9 L (42.0-52.0) % MCV 84.2 (80.0-98.0) fL MCH 27.8 (27.0-33.0) pg MCHC 33.0 (31.0-36.0) g/dl RDW 12.7 (11.0-16.0) % Plt Count 309 (160-400) X10*3/uL MPV 11.1 (9.4-12.4) fL Immature Gran % (Auto) 0.4 (0.0-0.4) % Neut % (Auto) 60.6 (45-73) % Lymph % (Auto) 27.9 (20-40) % [place] % (Auto) 9.2 (2-11) % Eos % (Auto) 1.4 (0-4) % Baso % (Auto) 0.5 (0-2) % Lymph # (Auto) 2.7 (1.2-4.9) X10*3/uL [place] # (Auto) 0.9 (0.1-1.2) X10*3/uL Eos # (Auto) 0.1 (0.0-0.4) X10*3/uL Baso # (Auto) 0.1 (0.0-0.2) X10*3/uL Abs Immat Gran (auto) 0.04 H (0.00-0.03) X10*3/uL Absolute Neuts (auto) 5.9 (2.0-8.3) x10*3/uL Absolute Nucleated RBC 0.000 (0.0-0.012) X10*3/uL Nucleated RBC % (auto) 0.0 (0.0-0.2) /100WBC Sodium 140 (135-145) mmol/L Potassium 4.0 (3.3-5.1) mmol/L Chloride 108 (96-108) mmol/L Carbon Dioxide 24 (22-29) mmol/L Anion Gap 12 (12-20) BUN 16 (9-16) mg/dL Creatinine 1.20 (0.5-1.4) mg/dL Estim Creat Clear Calc 89.7 Estimated GFR > 60 Fasting Glucose 125 H (60-99) mg/dL Calcium 9.7 (8.4-10.2) mg/dL Magnesium 2.2 (1.6-2.6) mg/dL Total Bilirubin 0.2 (0.0-1.0) mg/dL AST 14 (5-37) U/L ALT 27 (0-40) U/L Alkaline Phosphatase 51 (39-117) U/L Total Protein 8.0 (6.5-8.0) g/dL Albumin 5.1 H (3.5-5.0) g/dL Lipase 50 (8-78) U/L Urine Color Yellow Urine Appearance Clear Urine pH 6.5 (5.0-9.0) Ur Specific [place] 1.020 (1.005-1.025) Urine Protein Negative (Neg-Trace) mg/dL Urine Glucose (UA) Negative (Negative) mg/dL Urine Ketones Negative (Negative) mg/dL Urine Blood Negative (Negative) Urine Nitrite Negative (Negative) Ur Leukocyte Esterase Negative (Negative) Radiology Impression Discussion of test interpretation with radiology: I have reviewed the radiologist's reading. Discharge Plan Discharge Clinical Impression: Abdominal pain Patient Disposition: Home, Self-Care Instructions: Abdominal Pain (ED) Additional Instructions: All of your screening labs were completely normal including your urine sample. The x-ray revealed some degree of stool burden. You can use [id number] Colace, this is a stool softener, 1 to 2 times a day, along with the [id number] MiraLax, 1 to 2 times a day, to make sure you maintain regular bowel habits. This could be the cause of your underlying intermittent abdominal discomfort. Follow up with primary care as needed. Prescriptions: No Action cyclobenzaprine 10 mg tablet 10 mg PO TID PRN (Reason: muscle spasm) Qty: 20 0RF ibuprofen 600 mg tablet 600 mg PO Q6H PRN (Reason: pain) Qty: 30 0RF cephalexin 500 mg capsule 500 mg PO QID 5 Days Qty: 20 0RF Interventions: ED Discharge Assessment Last Done: 03/15/25 06:53 Discharge Date/Time: 03/15/25 06:54 Print Language: Mohawk
[2025-03-15 00:30] LABS: MANUAL DIFF FLAG NO
[2025-03-15 00:33] LABS: Hematocrit 40.9 % (42.0-52.0); Hemoglobin 13.5 g/dl (14.0-18.0); Imm Gran Abs Auto 0.04 X10*3/uL (0.00-0.03); Imm Gran Pct Auto 0.4 % (0.0-0.4); Lymphocytes Absolute Auto 2.7 X10*3/uL (1.2-4.9); Mean Corpuscular HGB Conc 33.0 g/dl (31.0-36.0); Mean Corpuscular Hemoglobin 27.8 pg (27.0-33.0); Mean Corpuscular Volume 84.2 fL (80.0-98.0); NRBC Abs Auto 0.000 X10*3/uL (0.0-0.012); NRBC Pct Auto 0.0 /100WBC (0.0-0.2); Platelet Count 309 X10*3/uL (160-400); Red Blood Count 4.86 X10*6/uL (4.60-5.80); White Blood Count 9.8 X10*3/uL (4.8-10.8)
[2025-03-15 01:05] LABS: Alanine Aminotransferase 27 U/L (0-40); Albumin Level 5.1 g/dL (3.5-5.0); Alkaline Phosphatase 51 U/L (39-117); Anion Gap 12 (12-20); Aspartate Amino Transferase 14 U/L (5-37); Blood Urea Nitrogen 16 mg/dL (9-16); Calcium 9.7 mg/dL (8.4-10.2); Carbon Dioxide 24 mmol/L (22-29); Chloride 108 mmol/L (96-108); Creatinine Clr Calc Pharmacy 89.7; Estimated Glomerular Filt Rate > 60; Lipase 50 U/L (8-78); Magnesium 2.2 mg/dL (1.6-2.6); Potassium 4.0 mmol/L (3.3-5.1); Sodium 140 mmol/L (135-145); Total Protein 8.0 g/dL (6.5-8.0)
[2025-03-15 03:01] VITALS: BP 148/91; PULSE 95; TEMP 36.9; O2SAT 96
[2025-03-15 03:16] LABS: Appearance Urine Clear; Glucose Urine UA Negative (Negative); PH 6.5 (5.0-9.0); Specific Gravity - Urine 1.020 (1.005-1.025)
--- OUTSIDE RECORDS SUMMARY | 2025-03-15 03:18 | XMS_ITS | Clinical Summary ---
Author Organization [employer] Address [address] [place] [address] Care Team Providers Care Return To Service Inspector Name Role Phone Unavailable Primary Care Provider [...] Tobacco Screening 2002 Family Planning (PISQ) 2005 HPV Vaccines (1 - Male 3-dos e series) 2005 Hepatitis C Screening 2008 DTaP/Tdap/Td Vaccines (1 - Tdap) 2009 Hepatitis B Vaccines (1 of 3 - 19+ 3-dose series) 2009 COVID-19 Vaccine (1 - 2023-2 5 season) 2025 Influenza Vaccine (#1) 2025 Zoster Vaccines (1 [...]
[2025-03-15 06:53] VITALS: BP 134/85; PULSE 87; RESP 16; TEMP 36.9; O2SAT 96
== END 2025-03-15 06:54 | disposition home or self-care (01) ==
PROVIDERS: Physician Assistant Medical; Emergency Provider Emergency Medicine
DX: R10.32 Left lower quadrant pain (principal)
CPT/HCPCS: 36415; 74018; 80053; 81003; 83690; 83735; 85025; 99283; 99284

== ENCOUNTER → 2025-03-15 04:42 | Outpatient (BNV) | payer MEDICAID, SELFPAY | PROVIDERS: Emergency Provider Emergency Medicine; Visit Provider Radiology Diagnostic Radiology | DX: R10.31 Right lower quadrant pain (principal); R10.32 Left lower quadrant pain | CPT/HCPCS: 74018 ==

== ENCOUNTER 2025-04-03 16:23 | Inpatient (IN) | payer MEDICAID, SELFPAY ==
--- NOTE | ~2025-04-03 | US_ITS ---
CLINICAL HISTORY: RUQ tenderness --- Additional Notes or Special Instructions: GB and CBD pls US abdomen limited Comparison: CT/SR - CT ABDOMEN PELVIS WO IV CON - 11/05/24 23:47 EDT Findings: The liver is echogenic likely hepatic steatosis. There is no intrahepatic bile duct dilatation. The common duct is 5 mm in diameter. The gallbladder is normal. There is no sonographic Jack sign. Gallbladder wall measures 2 mm. The right kidney is 11.7 cm in length. Small echogenic foci in right kidney possibly nonobstructing stones. Possible slight prominence of right renal collecting system. No ascites. IMPRESSION: 1. Gallbladder and common bile duct within normal limits. 2. Small echogenic foci in right kidney may represent nonobstructing stones. 3. Increased hepatic echogenicity likely steatosis. This document has been electronically signed by: Tierra Kelly MD on 04/03/2025 18:03:55
--- NOTE | ~2025-04-03 | CT_ITS ---
CLINICAL HISTORY: Abdominal pain CT abdomen and pelvis without contrast Comparison: CT/SR - CT ABDOMEN PELVIS WO IV CON - 11/05/24 23:47 EDT Findings: Limited evaluation without intravenous contrast. No consolidation or effusion. The gallbladder is unremarkable. No biliary ductal dilatation. Low-attenuation of the liver parenchyma suggestive of steatosis. Unenhanced spleen, pancreas and adrenal glands are unremarkable. 6 mm obstructing stone in proximal aspect right ureter with mild right hydroureter and hydronephrosis and perinephric stranding. There are 2 punctate 1 mm nonobstructing stones in the upper and mid poles of the left kidney. No left ureteral stones. No bowel obstruction, pneumoperitoneum, or pneumatosis. No free fluid. Normal appendix. Pelvic contents unremarkable. Small fat containing umbilical hernia. Abdominal aorta is normal in size. The bones are intact. IMPRESSION: 1. 6 mm obstructing stone in proximal aspect right ureter with mild hydronephrosis hydroureter and perinephric stranding. 2. There are 2 minimal punctate nonobstructing left renal stones. 3. Hepatic steatosis. This document has been electronically signed by: Tierra Kelly MD on 04/03/2025 20:49:07
--- NOTE | ~2025-04-03 | FL_ITS ---
EXAMINATION: FL GUIDANCE ONLY HISTORY: right ureteral stone COMPARISON: Correlation is made with a CT of the abdomen without contrast dated 04/03/2025. TECHNIQUE: Fluoroscopy time: 0.9 minutes. Cumulative Dose: 23.0 mGy. DAP: 6.27 Gycm2 Images: 8. FINDINGS: Fluoroscopic spot films of the right abdomen demonstrate placement of a nephroureteral stent. FL/FL guidance in OR IMPRESSION: Fluoroscopy during procedure. Please see procedure report for additional information. Electronically signed by: Salomón Marley MD 04/08/2025 03:35 PM EDT
[2025-04-03 16:39] VITALS: BP 174/98; PULSE 73; RESP 20; TEMP 36; O2SAT 100; BMI 39.4
--- NOTE | 2025-04-03 16:40 | ED_ITS ---
HPI - General Adult General Chief complaint: Abdominal Pain Stated complaint: abd, N/V/D (dehydration) Time Seen by Provider: 04/03/25 19:18 History of Present Illness ED Provider: Dr. Rivera HPI narrative: 34 y/o M patient; PMH obesity; presents from home with report of NBNB nausea, vomiting, diarrhea, and cramping abdominal pain. He states symptoms started after eating at a seafood restaurant. He denies: fever or chills, SOB, cough/congestion, chest pain. Related Data Previous Rx's ?Medication ?Instructions ?Recorded cephalexin 500 mg capsule 500 mg PO QID 5 days #20 cap s 07/17/24 cyclobenzaprine 10 mg tablet 10 mg PO TID PRN muscle s pasm #20 11/28/24 tabs ibuprofen 600 mg tablet 600 mg PO Q6H PRN pain #30 t abs 11/28/24 Allergies Allergy/AdvReac Type Severity Reaction Status Date / Time No Known Allergies Allergy Verified 04/03/25 16:43 Review of Systems 2 Review of Systems: Yes all other systems are reviewed and are negative [facility] Past Medical History Attestation statement: The following information was validated with the patient. Source: old records reviewed Medical History No pertinent past medical history Social History Social History Patient Tobacco Use Status: Never used Tobacco Smoked in Last 30 Days: No Use of substances other than those prescribed or required for medical reasons: Yes Substance Use Type: Marijuana Substance Use Frequency: Daily Any prior treatment program specific to substance use: No Advance Directives: No Advance Directives Information Provided: No Do you have a plan to hurt others: No Plan Physical Exam ED Vital Signs: Vital Signs - 24 hr 04/03/25 16:39 04/03/25 18:24 Temperature 96.8 F 98.0 F Pulse Rate 73 76 Respiratory Rate 20 18 Blood Pressure 174/98 H 143/90 H Pulse Oximetry 100 98 Oxygen Delivery Method Room Air Room Air BMI result Body Mass Index 39.4 Patient is afebrile, hemodynamically stable. Initially hypertensive but improved well without intervention. Const General: cooperative and no acute distress HENMT Head: Yes normal to inspection and Yes atraumatic Eyes General: appearance normal, both eyes and all related structures Pupils: Equal, round and reactive pupils present EOM: EOMs intact bilaterally Neck Neck: Yes normal visual inspection, Yes full ROM, Yes supple and No tender Chest Chest palpation & inspection: normal inspection of the chest and normal palpation of entire chest wall Resp Effort & Inspection: normal respiratory effort, able to speak in complete sentences and no cough Auscultation: clear to auscultation bilaterally Cardio Rate: regular rate Rhythm: regular rhythm Peripheral pulses: Peripheral pulses 2+ throughout GI Inspection: Yes normal to inspection, No Abdominal wall edema and No distended Palpation (GI): Soft to palpation, not firm, nontender, no guarding and not rigid Auscultation: normal bowel sounds Back/Spine/Pelvis Back: No back tenderness Neuro Cranial nerves: Yes Equal, round and reactive pupils present Course Course Course Narrative: This is a rapid medical exam performed by Vernell Montez NP: Additional HPI, ROS, PE not included below will be deferred to primary provider. Patient is a 34y/o M presenting with R sided abd pain radiating around to his back since eating at a seafood restaurant on Monday. Monday at 5 am developed the pain, n/v/d. No vomting or diarrhea since the first day but pain is continuing. Plan: labs, U/S Reevaluation(s) Reevaluation #1: Patient is afebrile and hemodynamically stable. Reviewed triage work up of labs and US. No significant leukocytosis. Mild baseline anemia. Cr 1.83, prior was 1.2 on 03/15. Providing 2L IVF and Tylenol 1g IV. US is unremarkable. Providing additional symptom management with 4mg Morphine and 4mg Zofran IV. CT Abdomen/Pelvis ordered. Reviewed and shows a 6mm obstructing stone in the proximal aspect of the right ureter with mild hydronephrosis, hydroureter and perinephric stranding. Given patient's significant pain with nausea/vomiting and approx 4 days of anorexia, discussed with urology and will plan to admit for symptom management. Pending UA. Discussed with urology. Recommend NPO at midnight with possible ureteral stent add on tomorrow. Will be seen by Urology in the morning. At the time of admission urine was still pending. Plan: Admit to hospital Condition: Stable Medical Decision Making Lab Data 04/03/25 16:50 10/09/25 16:50 Labs: Lab Results 04/03/25 Range/Units 16:50 WBC 9.1 (4.8-10.8) X10*3/uL RBC 4.99 (4.60-5.80) X10*6/uL Hgb 13.7 L (14.0-18.0) g/dl Hct 41.9 L (42.0-52.0) % MCV 84.0 (80.0-98.0) fL MCH 27.5 (27.0-33.0) pg MCHC 32.7 (31.0-36.0) g/dl RDW 12.4 (11.0-16.0) % Plt Count 297 (160-400) X10*3/uL MPV 10.2 (9.4-12.4) fL Immature Gran % (Auto) 0.4 (0.0-0.4) % Neut % (Auto) 72.9 (45-73) % Lymph % (Auto) 18.9 L (20-40) % [place] % (Auto) 6.6 (2-11) % Eos % (Auto) 0.8 (0-4) % Baso % (Auto) 0.4 (0-2) % Lymph # (Auto) 1.7 (1.2-4.9) X10*3/uL [place] # (Auto) 0.6 (0.1-1.2) X10*3/uL Eos # (Auto) 0.1 (0.0-0.4) X10*3/uL Baso # (Auto) 0.0 (0.0-0.2) X10*3/uL Abs Immat Gran (auto) 0.04 H (0.00-0.03) X10*3/uL Absolute Neuts (auto) 6.6 (2.0-8.3) x10*3/uL Absolute Nucleated RBC 0.000 (0.0-0.012) X10*3/uL Nucleated RBC % (auto) 0.0 (0.0-0.2) /100WBC Sodium 139 (135-145) mmol/L Potassium 4.3 (3.3-5.1) mmol/L Chloride 106 (96-108) mmol/L Carbon Dioxide 23 (22-29) mmol/L Anion Gap 14 (12-20) BUN 16 (9-16) mg/dL Creatinine 1.83 H (0.5-1.4) mg/dL Estim Creat Clear Calc 57.7 Estimated GFR 43 Random Glucose 115 (60-115) mg/dL Calcium 10.1 (8.4-10.2) mg/dL Total Bilirubin 0.5 (0.0-1.0) mg/dL AST 17 (5-37) U/L ALT 27 (0-40) U/L Alkaline Phosphatase 50 (39-117) U/L Total Protein 8.4 H (6.5-8.0) g/dL Albumin 5.2 H (3.5-5.0) g/dL Lipase 14 (8-78) U/L Radiology Impression Discussion of test interpretation with radiology: I have reviewed the radiologist's reading. Radiologist Impression: CLINICAL HISTORY: RUQ tenderness --- Additional Notes or Special Instructions: GB and CBD pls US abdomen limited Comparison: CT/SR - CT ABDOMEN PELVIS WO IV CON - 11/05/24 23:47 EDT Findings: The liver is echogenic likely hepatic steatosis. There is no intrahepatic bile duct dilatation. The common duct is 5 mm in diameter. The gallbladder is normal. There is no sonographic Jack sign. Gallbladder wall measures 2 mm. The right kidney is 11.7 cm in length. Small echogenic foci in right kidney possibly nonobstructing stones. Possible slight prominence of right renal collecting system. No ascites. IMPRESSION: 1. Gallbladder and common bile duct within normal limits. 2. Small echogenic foci in right kidney may represent nonobstructing stones. 3. Increased hepatic echogenicity likely steatosis. This document has been electronically signed by: Tierra Kelly MD on 04/03/2025 18:03:55 CLINICAL HISTORY: Abdominal pain CT abdomen and pelvis without contrast Comparison: CT/SR - CT ABDOMEN PELVIS WO IV CON - 11/05/24 23:47 EDT Findings: Limited evaluation without intravenous contrast. No consolidation or effusion. The gallbladder is unremarkable. No biliary ductal dilatation. Low-attenuation of the liver parenchyma suggestive of steatosis. Unenhanced spleen, pancreas and adrenal glands are unremarkable. 6 mm obstructing stone in proximal aspect right ureter with mild right hydroureter and hydronephrosis and perinephric stranding. There are 2 punctate 1 mm nonobstructing stones in the upper and mid poles of the left kidney. No left ureteral stones. No bowel obstruction, pneumoperitoneum, or pneumatosis. No free fluid. Normal appendix. Pelvic contents unremarkable. Small fat containing umbilical hernia. Abdominal aorta is normal in size. The bones are intact. IMPRESSION: 1. 6 mm obstructing stone in proximal aspect right ureter with mild hydronephrosis hydroureter and perinephric stranding. 2. There are 2 minimal punctate nonobstructing left renal stones. 3. Hepatic steatosis. This document has been electronically signed by: Tierra Kelly MD on 04/03/2025 20:49:07 Discharge Plan Discharge Clinical Impression: Nephrolithiasis Patient Disposition: Admitted As Inpatient Print Language: Italian
[2025-04-03 16:55] LABS: Hematocrit 41.9 % (42.0-52.0); Hemoglobin 13.7 g/dl (14.0-18.0); Imm Gran Abs Auto 0.04 X10*3/uL (0.00-0.03); Imm Gran Pct Auto 0.4 % (0.0-0.4); Lymphocytes Absolute Auto 1.7 X10*3/uL (1.2-4.9); MANUAL DIFF FLAG NO; Mean Corpuscular HGB Conc 32.7 g/dl (31.0-36.0); Mean Corpuscular Hemoglobin 27.5 pg (27.0-33.0); Mean Corpuscular Volume 84.0 fL (80.0-98.0); NRBC Abs Auto 0.000 X10*3/uL (0.0-0.012); NRBC Pct Auto 0.0 /100WBC (0.0-0.2); Platelet Count 297 X10*3/uL (160-400); Red Blood Count 4.99 X10*6/uL (4.60-5.80); White Blood Count 9.1 X10*3/uL (4.8-10.8)
[2025-04-03 17:18] LABS: Alanine Aminotransferase 27 U/L (0-40); Albumin Level 5.2 g/dL (3.5-5.0); Alkaline Phosphatase 50 U/L (39-117); Anion Gap 14 (12-20); Aspartate Amino Transferase 17 U/L (5-37); Blood Urea Nitrogen 16 mg/dL (9-16); Calcium 10.1 mg/dL (8.4-10.2); Carbon Dioxide 23 mmol/L (22-29); Chloride 106 mmol/L (96-108); Creatinine Clr Calc Pharmacy 57.7; Estimated Glomerular Filt Rate 43; Lipase 14 U/L (8-78); Potassium 4.3 mmol/L (3.3-5.1); Sodium 139 mmol/L (135-145); Total Protein 8.4 g/dL (6.5-8.0)
[2025-04-03 18:24] VITALS: BP 143/90; PULSE 76; RESP 18; TEMP 36.7; O2SAT 98
--- NOTE | 2025-04-03 18:41 | PC.NURSE ---
patient a&ox3, rr equal/non labored, pt pale/ mildly diaphoretic, 8/10 abd pain and nausea, vss, labs previously drawn in triage, awaiting provider evaluation
--- NOTE | 2025-04-03 21:06 | P.HPHOSP_ITS ---
History of Present Illness Date of Service: 04/03/25 Chief Complaint: Abdominal pain 34-year-old male with a past medical history of obesity; presented to the hospital with a chief complaint of abdominal pain. Patient mentioned that for the past few days he has been having nausea vomiting and abdominal pain subsequently came to the ER for further evaluation. Patient denies any fever chills cough or sputum production. Denies any blood in the urine. Denies any chest pain or palpitations. Denies any dysuria. Review of all other systems is negative except mentioned above ER course: Per ER team, patient noted to have right flank tenderness; CT scan showed right ureteral stone with hydronephrosis and hydroureter; urology was notified. Also noted a mild RUDDY. Patient was not able to tolerate p.o.. [facility] Medical History No pertinent past medical history Social History Patient Tobacco Use Status: Never used Tobacco Smoked in Last 30 Days: No Use of substances other than those prescribed or required for medical reasons: Yes Substance Use Type: Marijuana Substance Use Frequency: Daily Any prior treatment program specific to substance use: No Advance Directives: No Advance Directives Information Provided: No Do you have a plan to hurt others: No Plan Meds Allergies Allergy/AdvReac Type Severity Reaction Status Date / Time No Known Allergies Allergy Verified 04/03/25 16:43 Physical Exam 2 Vital Signs and Narrative: Vital Signs: Last Vital Signs Temp 98.0 F 04/03/25 18:24 Pulse 76 04/03/25 18:24 Resp 18 04/03/25 18:24 BP 143/90 H 04/03/25 18:24 Pulse Ox 98 04/03/25 18:24 O2 Del Method Room Air 04/03/25 18:24 BMI result Body Mass Index 39.4 Gen: Appears be in no acute distress HEENT: NCAT, Moist mucosa. Pulmonary: Vesicular breath sounds, fair air entry CVS: Normal S1-S2 Abdomen: BS+, Soft, Nontender Extremities: Warm well perfused Neuro: Alert and awake. Results Labs 04/03/25 16:50 04/03/25 16:50 Labs: Laboratory Results - last 24 hr 04/03/25 16:50 MCV 84.0 MCH 27.5 MCHC 32.7 RDW 12.4 Plt Count 297 MPV 10.2 Immature Gran % (Auto) 0.4 Neut % (Auto) 72.9 Lymph % (Auto) 18.9 L [place] % (Auto) 6.6 Eos % (Auto) 0.8 Baso % (Auto) 0.4 Lymph # (Auto) 1.7 [place] # (Auto) 0.6 Eos # (Auto) 0.1 Baso # (Auto) 0.0 Abs Immat Gran (auto) 0.04 H Absolute Neuts (auto) 6.6 Absolute Nucleated RBC 0.000 Nucleated RBC % (auto) 0.0 Anion Gap 14 Estim Creat Clear Calc 57.7 Estimated GFR 43 Random Glucose 115 Calcium 10.1 Total Bilirubin 0.5 AST 17 ALT 27 Alkaline Phosphatase 50 Total Protein 8.4 H Albumin 5.2 H Lipase 14 Assessment and Plan (1) Nephrolithiasis: Status: Acute Plan 34-year-old male with a past medical history of obesity; presented to the hospital with a chief complaint of abdominal pain. Noted to have right ureteral stone. Right ureteral stone: Right hydroureter: Right hydronephrosis with perinephric stranding: UA negative Pain control Urology was notified-recommended NPO after midnight for possible stent in a.m. Supportive care Mild RUDDY: Gentle IV fluids. DVT prophylaxis: Subcu heparin Code status: Full code Quality Stroke Does the patient have a stroke diagnosis?: No VTE Prior VTE?: No VTE Risk Level:: Medical - moderate - high VTE Device Contraindication: Treatment Not Indicated VTE Drug Contraindication: N/A - Med Ordered
[2025-04-03 21:27] VITALS: BP 152/99; PULSE 86; RESP 18; O2SAT 97
--- NOTE | 2025-04-03 21:29 | PHA.MEDREC ---
Addendum entered by Matt Eric, PharmD 04/03/25 21:54: MED REC CHECKED BY [facility] Original Note: Pharmacy Consult ? Medication Reconciliation Pharmacy has completed the medication reconciliation. Patient states he is not on any medications. He was taking Penicillin that he bought at a store. Patient states he took it for 3 days.
[2025-04-03] MEDS: Lactated Ringers 1,000 ML 100 ML IVCONT (22:47)
[2025-04-04] VITALS (13 sets, daily range): BP systolic 110–160; BP diastolic 61–98; PULSE 64–94; RESP 14–18; TEMP 36.2–37.1; O2SAT 95–99; BMI 40.3
[2025-04-04 00:53] LABS: Appearance Urine Clear; Glucose Urine UA Negative (Negative); PH 5.0 (5.0-9.0); Specific Gravity - Urine 1.020 (1.005-1.025)
[2025-04-04 07:24] LABS: MANUAL DIFF FLAG NO
[2025-04-04 07:32] LABS: Hematocrit 38.0 % (42.0-52.0); Hemoglobin 12.4 g/dl (14.0-18.0); Imm Gran Abs Auto 0.06 X10*3/uL (0.00-0.03); Imm Gran Pct Auto 0.6 % (0.0-0.4); Lymphocytes Absolute Auto 1.2 X10*3/uL (1.2-4.9); Mean Corpuscular HGB Conc 32.6 g/dl (31.0-36.0); Mean Corpuscular Hemoglobin 27.4 pg (27.0-33.0); Mean Corpuscular Volume 83.9 fL (80.0-98.0); NRBC Abs Auto 0.000 X10*3/uL (0.0-0.012); NRBC Pct Auto 0.0 /100WBC (0.0-0.2); Platelet Count 302 X10*3/uL (160-400); Red Blood Count 4.53 X10*6/uL (4.60-5.80); White Blood Count 10.3 X10*3/uL (4.8-10.8)
[2025-04-04 07:47] LABS: Anion Gap 13 (12-20); Blood Urea Nitrogen 15 mg/dL (9-16); Calcium 9.4 mg/dL (8.4-10.2); Carbon Dioxide 24 mmol/L (22-29); Chloride 107 mmol/L (96-108); Creatinine Clr Calc Pharmacy 65.2; Estimated Glomerular Filt Rate 48; Potassium 4.2 mmol/L (3.3-5.1); Sodium 140 mmol/L (135-145)
[2025-04-04] MEDS: Lactated Ringers 1,000 ML 100 ML IVCONT ×2 (08:54→19:43)
--- NOTE | 2025-04-04 11:02 | MHC.CM.PN ---
Pt. lives with his family, he does not use home health services or DME. He does not know who his PCP is, said he has seen a Urologist, but not a PCP. His car is here for transport home at [place], DCP: home, self care, CM to follow for DC needs.
--- NOTE | 2025-04-04 11:49 | P.PNIM_ITS ---
Subjective Subjective Date of Service: 04/04/25 Interval History: f/u on kidney stone, ruddy, hematuria persistent pain Physical Exam 2 Vital Signs: Vital Signs: Last Vital Signs Temp 97.2 F 04/04/25 11:03 Pulse 78 04/04/25 11:03 Resp 18 04/04/25 11:03 BP 138/90 H 04/04/25 11:03 Pulse Ox 97 04/04/25 11:03 O2 Del Method Room Air 04/04/25 11:03 BMI result Body Mass Index 40.3 Const: Other: General: AO X 3, no acute distress Resp: CTA bilateral CVS: S1,S2,RRR GI: +BS, NT, no distention Skin: No rash Neuro: motor grossly intact Psych: appropriate affect Objective Data Active Medications Acetaminophen (Acetaminophen 325 Mg Tablet) 650 mg PO Q6H PRN PRN Reason: Pain, Mild 1-3,fever,headache Calcium Carbonate (Calcium Carbonate 750 Mg Tab.Chew) 750 mg PO Q4H PRN PRN Reason: Heartburn Heparin Sodium (Porcine) (Heparin Sodium,Porcine 5,000 Unit/Ml Vial) 5,000 unit SUBCUT Q8H [facility] Last Admin: 04/04/25 05:09 Dose: 5,000 unit Documented By: ANTOIC Hydromorphone HCl (Hydromorphone Hcl 0.5 Mg/0.5 Ml Syringe) 0.5 mg IVPUSH Q4H PRN; Protocol PRN Reason: Pain, Severe (Pain Scale 7-10) Last Admin: 04/04/25 09:00 Dose: 0.5 mg Documented By: SELENE Lactated Ringer's (Lr) 1,000 mls @ 100 mls/hr IVCONT .Q10H [facility] Last Admin: 04/04/25 08:54 Dose: 100 mls/hr Documented By: SELENE Magnesium Hydroxide (Milk Of Magnesia 30 Ml Oral.Susp) 30 ml PO DAILY PRN PRN Reason: Constipation Melatonin (Melatonin 3 Mg Tablet) 6 mg PO BEDTIME PRN PRN Reason: Insomnia Polyethylene Glycol (Polyethylene Glycol 3350 17 Gm Powd.Pack) 17 gm PO DAILY PRN PRN Reason: Constipation Senna (Sennosides 8.6 Mg Tablet) 17.2 mg PO BEDTIME [facility] Sodium Chloride (0.9 % Sodium Chloride Flush 3 Ml Syringe) 3 ml IVFLUSH QSHIFT [facility] Last Admin: 04/04/25 08:40 Dose: Not Given Documented By: SELENE Non-Admin Reason: IV Running Labs 04/04/25 07:07 04/04/25 07:07 Labs: Laboratory Results - last 24 hr 04/03/25 04/04/25 04/04/25 16:50 00:46 07:07 MCV 84.0 83.9 MCH 27.5 27.4 MCHC 32.7 32.6 RDW 12.4 12.3 Plt Count 297 302 MPV 10.2 10.5 Immature Gran % (Auto) 0.4 0.6 H Neut % (Auto) 72.9 78.9 H Lymph % (Auto) 18.9 L 11.7 L [place] % (Auto) 6.6 8.1 Eos % (Auto) 0.8 0.3 Baso % (Auto) 0.4 0.4 Lymph # (Auto) 1.7 1.2 [place] # (Auto) 0.6 0.8 Eos # (Auto) 0.1 0.0 Baso # (Auto) 0.0 0.0 Abs Immat Gran (auto) 0.04 H 0.06 H Absolute Neuts (auto) 6.6 8.1 Absolute Nucleated RBC 0.000 0.000 Nucleated RBC % (auto) 0.0 0.0 Anion Gap 14 13 Estim Creat Clear Calc 57.7 65.2 Estimated GFR 43 48 Random Glucose 115 91 Calcium 10.1 9.4 D Total Bilirubin 0.5 AST 17 ALT 27 Alkaline Phosphatase 50 Total Protein 8.4 H Albumin 5.2 H Lipase 14 Urine Color Yellow Urine Appearance Clear Urine pH 5.0 Ur Specific [place] 1.020 Urine Protein Negative Urine Glucose (UA) Negative Urine Ketones 80 Urine Blood Negative Urine Nitrite Negative Ur Leukocyte Esterase Negative Urine RBC 0-2 Urine WBC 0-5 Ur Squamous Epith Cells 0-2 Urine Bacteria None Seen Hyaline Casts 0-2 Assessment and Plan (1) Nephrolithiasis: Status: Acute (2) Gross hematuria: Status: Acute Plan 34-year-old male with a past medical history of obesity; presented to the hospital with a chief complaint of abdominal pain. Noted to have right ureteral stone. Right ureteral stone: Right hydroureter: Right hydronephrosis with perinephric stranding: Gross hematuria UA negative for infection Pain control Urology was notified-recommended NPO after midnight for possible stent in a.m. Supportive care Mild RUDDY: Gentle IV fluids and resolved.. DVT prophylaxis: Subcu heparin Code status: Full code Quality Stroke Does the patient have a stroke diagnosis?: No VTE Prior VTE?: No VTE Risk Level:: Medical - moderate - high VTE Device Contraindication: Treatment Not Indicated VTE Drug Contraindication: N/A - Med Ordered
--- NOTE | 2025-04-04 12:44 | PM.UROCN ---
History of Present Illness Consult details Consult date: 04/04/25 Narrative: CC: Right proximal ureteric stone with RUDDY 34-year-old male Presents through emergency room with nausea, vomiting and right-sided flank pain Denies hematuria, fever, chills or dysuria No prior stone history Labs with creatinine 1.8 Imaging - CT - 6 mm obstructing stone in proximal aspect right ureter with mild right hydroureter and hydronephrosis and perinephric stranding.There are 2 punctate 1 mm nonobstructing stones in the upper and mid poles of the left kidney Recommend cystoscopy, right retrograde, right ureteroscopy with laser lithotripsy and stent placement Review of Systems Constitutional: Constitutional: Reports as per HPI and Reports no additional constitutional complaints Cardiovascular: Cardiovascular: Reports as per HPI and Reports no additional cardiovascular complaints Respiratory: Respiratory: Reports as per HPI and Reports no additional respiratory complaints Gastrointestinal: Gastrointestinal: Reports as per HPI and Reports no additional gastrointestinal complaints Genitourinary: Genitourinary: Reports as per HPI Musculoskeletal: Musculoskeletal: Reports no additional musculoskeletal complaints and Reports as per HPI Neurologic: Reports system reviewed and no additional complaints, except as documented and Reports as per HPI [facility] Past Medical History Medical History No pertinent past medical history Social History Social History Household Members: Family Housing: House Do you presently have visiting nurse or other home services: No Patient Tobacco Use Status: Current everyday Tobacco user Smoked in Last 30 Days: No Use of substances other than those prescribed or required for medical reasons: Yes Substance Use Type: Marijuana Substance Use Frequency: Daily Currently Displaying Signs/Symptoms of Drug Intoxication Withdrawal: No Any prior treatment program specific to substance use: No Advance Directives: No Advance Directives Information Provided: No Do you have a plan to hurt others: No Plan Nutrition Risks: No Nutritional Risk service: No Meds Allergies Allergy/AdvReac Type Severity Reaction Status Date / Time No Known Allergies Allergy Verified 04/03/25 16:43 Active Medications: Current Medications Acetaminophen (Acetaminophen 325 Mg Tablet) 650 mg PO Q6H PRN PRN Reason: Pain, Mild 1-3,fever,headache Calcium Carbonate (Calcium Carbonate 750 Mg Tab.Chew) 750 mg PO Q4H PRN PRN Reason: Heartburn Heparin Sodium (Porcine) (Heparin Sodium,Porcine 5,000 Unit/Ml Vial) 5,000 unit SUBCUT Q8H [facility] Last Admin: 04/04/25 05:09 Dose: 5,000 unit Hydromorphone HCl (Hydromorphone Hcl 0.5 Mg/0.5 Ml Syringe) 0.5 mg IVPUSH Q4H PRN; Protocol PRN Reason: Pain, Severe (Pain Scale 7-10) Last Admin: 04/04/25 09:00 Dose: 0.5 mg Lactated Ringer's (Lr) 1,000 mls @ 100 mls/hr IVCONT .Q10H [facility] Last Admin: 04/04/25 08:54 Dose: 100 mls/hr Levofloxacin (Levaquin) 500 mg in 100 mls @ 100 mls/hr IV PREOP ONE Stop: 04/04/25 13:40 Acetaminophen (Ofirmev) 1,000 mg in 100 mls @ 400 mls/hr IV PREOP ONE Stop: 04/04/25 12:55 Magnesium Hydroxide (Milk Of Magnesia 30 Ml Oral.Susp) 30 ml PO DAILY PRN PRN Reason: Constipation Melatonin (Melatonin 3 Mg Tablet) 6 mg PO BEDTIME PRN PRN Reason: Insomnia Polyethylene Glycol (Polyethylene Glycol 3350 17 Gm Powd.Pack) 17 gm PO DAILY PRN PRN Reason: Constipation Senna (Sennosides 8.6 Mg Tablet) 17.2 mg PO BEDTIME [facility] Sodium Chloride (0.9 % Sodium Chloride Flush 3 Ml Syringe) 3 ml IVFLUSH QSHIFT [facility] Last Admin: 04/04/25 08:40 Dose: Not Given Home Medications ?Medication ?Instructions ?Recorded ?Confirmed ?Last Taken ?Type No Known Home Meds 04/03/25 04/03/25 Unknown History Physical Exam Vital Signs: Vital Signs: Last Vital Signs Temp 97.2 F 04/04/25 11:03 Pulse 78 04/04/25 11:03 Resp 18 04/04/25 11:03 BP 138/90 H 04/04/25 11:03 Pulse Ox 97 04/04/25 11:03 O2 Del Method Room Air 04/04/25 11:03 BMI result Body Mass Index 40.3 Const: General: cooperative, healthy appearing, comfortable and no acute distress Orientation/consciousness: patient oriented x3 HEENT: Face and sinus: Yes normal facial exam Mouth: moist mucous membranes Neck: Neck: Yes normal visual inspection, Yes full ROM and Yes trachea midline Chest: Chest palpation & inspection: normal inspection of the chest Resp: Effort & Inspection: normal respiratory effort, able to speak in complete sentences and no respiratory distress GI: Inspection: Yes normal to inspection Back/Spine/Pelvis: Cervical Spine: normal cervical lordosis Thoracic/Lumbar Spine: thoracic and lumbar spine normal to inspection Skin: General skin exam: no rashes or lesions noted Neuro: General: patient oriented x3, tone normal and moves all extremities Extrem: General: Yes normal to inspection and Yes capillary refill normal Results Labs 04/04/25 07:07 04/04/25 07:07 Labs: Abnormal lab results 04/03/25 04/04/25 Range/Units 16:50 07:07 RBC 4.53 L (4.60-5.80) X10*6/uL Hgb 13.7 L 12.4 L (14.0-18.0) g/dl Hct 41.9 L 38.0 L (42.0-52.0) % Immature Gran % (Auto) 0.6 H (0.0-0.4) % Neut % (Auto) 78.9 H (45-73) % Lymph % (Auto) 18.9 L 11.7 L (20-40) % Abs Immat Gran (auto) 0.04 H 0.06 H (0.00-0.03) X10*3/uL Creatinine 1.83 H 1.64 H (0.5-1.4) mg/dL Total Protein 8.4 H (6.5-8.0) g/dL Albumin 5.2 H (3.5-5.0) g/dL Short CBC 04/03/25 04/04/25 Range/Units 16:50 07:07 WBC 9.1 10.3 (4.8-10.8) X10*3/uL Hgb 13.7 L 12.4 L (14.0-18.0) g/dl Hct 41.9 L 38.0 L (42.0-52.0) % Plt Count 297 302 (160-400) X10*3/uL BMP 04/03/25 04/04/25 16:50 07:07 Sodium 139 140 Potassium 4.3 4.2 Chloride 106 107 Carbon Dioxide 23 24 BUN 16 15 Creatinine 1.83 H 1.64 H Calcium 10.1 9.4 D Liver Function 04/03/25 Range/Units 16:50 Total Bilirubin 0.5 (0.0-1.0) mg/dL AST 17 (5-37) U/L ALT 27 (0-40) U/L Alkaline Phosphatase 50 (39-117) U/L Albumin 5.2 H (3.5-5.0) g/dL Urine 04/04/25 Range/Units 00:46 Urine Color Yellow Urine Appearance Clear Urine pH 5.0 (5.0-9.0) Ur Specific [place] 1.020 (1.005-1.025) Urine Protein Negative (Neg-Trace) mg/dL Urine Glucose (UA) Negative (Negative) mg/dL All other labs normal. Assessment and Plan (1) Nephrolithiasis: Status: Acute Plan Ureteroscopy We discussed the nature of the decision and reasonable alternatives for performing ureteroscopy. Options such as medical therapy were discussed. Interventions include chemical dissolution, ESWL, ureteroscopy with laser lithotripsy and stent placement, PCNL. The relative uncertainties and benefits related to each alternate procedure were adequately discussed. General surgical risks including, but not limited to - pain, bleeding, infection, myocardial infarction, pulmonary embolus, deep vein thrombosis and cerebrovascular accident which may result in further hospitalization were discussed. Full disclosure of the procedure as well as all major risks, benefits and complications were discussed including but not limited to damage to the urethra, bladder and kidney infection, damage to the ureter, stent migration or malposition, scarring to the renal pelvis, remnant stone fragments, subsequent stone passage with need for secondary procedures. The overall secondary procedure rate is approximately 10-15%. The overall clearance rate is approximately 90-95%. Success of the procedure in the short-term does not necessarily guarantee that long-term success will be maintained. Suitable follow up will need to be maintained. The patient showed understanding of discussion and wishes to proceed with - cystoscopy, retrograde, ureteroscopy, possible lithotripsy/stone basketing and stent on the right side Procedures Date of Service Date of Service: 04/04/25
--- NOTE | 2025-04-04 16:25 | HO.ANESPROP2 ---
Documented by User: Carolina Holliday NP 04/04/25 13:56 HPI - Anesthesia Eval Consult details Narrative: 34 yr old male for right Cystoscopy, Ureteroroscopy, Retro, Laser BMI 40.3 PMFSH Active Problems Active Problems: All Active Problems Nephrolithiasis (Acute) Gross hematuria (Acute) Past Medical History Medical History No pertinent past medical history Surgical History Surgical History (Updated 04/04/25 @ 14:54 by Ban Shipman RN) Hx of cystoscopy Social History Social History Household Members: Family Housing: House Do you presently have visiting nurse or other home services: No Patient Tobacco Use Status: Former Tobacco user Smoked in Last 30 Days: No Use of substances other than those prescribed or required for medical reasons: Yes Substance Use Type: Marijuana Substance Use Frequency: Chronic Longstanding Currently Displaying Signs/Symptoms of Drug Intoxication Withdrawal: No Any prior treatment program specific to substance use: No Have you been hit, kicked, punched, or otherwise hurt by someone within the past year? If so, by whom?: No Are you DNR?: No Advance Directives: No Advance Directives Information Provided: No Do you have a plan to hurt others: No Plan Nutrition Risks: No Nutritional Risk service: No Meds Allergies Allergy/AdvReac Type Severity Reaction Status Date / Time No Known Allergies Allergy Verified 04/03/25 16:43 Active Medications: Current Medications Acetaminophen (Acetaminophen 325 Mg Tablet) 650 mg PO Q6H PRN PRN Reason: Pain, Mild 1-3,fever,headache Calcium Carbonate (Calcium Carbonate 750 Mg Tab.Chew) 750 mg PO Q4H PRN PRN Reason: Heartburn Heparin Sodium (Porcine) (Heparin Sodium,Porcine 5,000 Unit/Ml Vial) 5,000 unit SUBCUT Q8H [facility] Last Admin: 04/04/25 05:09 Dose: 5,000 unit Hydromorphone HCl (Hydromorphone Hcl 0.5 Mg/0.5 Ml Syringe) 0.5 mg IVPUSH Q4H PRN; Protocol PRN Reason: Pain, Severe (Pain Scale 7-10) Last Admin: 04/04/25 13:23 Dose: 0.5 mg Lactated Ringer's (Lr) 1,000 mls @ 100 mls/hr IVCONT .Q10H [facility] Last Admin: 04/04/25 08:54 Dose: 100 mls/hr Magnesium Hydroxide (Milk Of Magnesia 30 Ml Oral.Susp) 30 ml PO DAILY PRN PRN Reason: Constipation Melatonin (Melatonin 3 Mg Tablet) 6 mg PO BEDTIME PRN PRN Reason: Insomnia Polyethylene Glycol (Polyethylene Glycol 3350 17 Gm Powd.Pack) 17 gm PO DAILY PRN PRN Reason: Constipation Senna (Sennosides 8.6 Mg Tablet) 17.2 mg PO BEDTIME [facility] Sodium Chloride (0.9 % Sodium Chloride Flush 3 Ml Syringe) 3 ml IVFLUSH QSHIFT [facility] Last Admin: 04/04/25 08:40 Dose: Not Given Home Medications ?Medication ?Instructions ?Recorded ?Confirmed ?Last Taken ?Type No Known Home Meds 04/03/25 04/03/25 Unknown History Exam Height,Weight and Vital Signs: Height 5 ft 2 in Weight 99.9 kg Last Vital Signs Temp 97.2 F 04/04/25 11:03 Pulse 78 04/04/25 11:03 Resp 18 04/04/25 11:03 BP 138/90 H 04/04/25 11:03 Pulse Ox 97 04/04/25 11:03 O2 Del Method Room Air 04/04/25 11:03 Pertinent Lab Results Pertinent Lab Results: Laboratory Tests 04/03/25 04/04/25 04/04/25 16:50 00:46 07:07 WBC 9.1 10.3 RBC 4.99 4.53 L Hgb 13.7 L 12.4 L Hct 41.9 L 38.0 L MCV 84.0 83.9 MCH 27.5 27.4 MCHC 32.7 32.6 RDW 12.4 12.3 Plt Count 297 302 MPV 10.2 10.5 Immature Gran % (Auto) 0.4 0.6 H Neut % (Auto) 72.9 78.9 H Lymph % (Auto) 18.9 L 11.7 L [place] % (Auto) 6.6 8.1 Eos % (Auto) 0.8 0.3 Baso % (Auto) 0.4 0.4 Lymph # (Auto) 1.7 1.2 [place] # (Auto) 0.6 0.8 Eos # (Auto) 0.1 0.0 Baso # (Auto) 0.0 0.0 Abs Immat Gran (auto) 0.04 H 0.06 H Absolute Neuts (auto) 6.6 8.1 Absolute Nucleated RBC 0.000 0.000 Nucleated RBC % (auto) 0.0 0.0 Sodium 139 140 Potassium 4.3 4.2 Chloride 106 107 Carbon Dioxide 23 24 Anion Gap 14 13 BUN 16 15 Creatinine 1.83 H 1.64 H Estim Creat Clear Calc 57.7 65.2 Estimated GFR 43 48 Random Glucose 115 91 Calcium 10.1 9.4 D Total Bilirubin 0.5 AST 17 ALT 27 Alkaline Phosphatase 50 Total Protein 8.4 H Albumin 5.2 H Lipase 14 Urine Color Yellow Urine Appearance Clear Urine pH 5.0 Ur Specific [place] 1.020 Urine Protein Negative Urine Glucose (UA) Negative Urine Ketones 80 Urine Blood Negative Urine Nitrite Negative Ur Leukocyte Esterase Negative Urine RBC 0-2 Urine WBC 0-5 Ur Squamous Epith Cells 0-2 Urine Bacteria None Seen Hyaline Casts 0-2 Documented by User: Fawn Estrada DO 04/04/25 16:46 PMFSH Past Medical History Medical History No pertinent past medical history Family History Family history of problems with anesthesia: No Surgical History Surgical History (Updated 04/04/25 @ 14:54 by Ban Shipman RN) Hx of cystoscopy History of Problems with Anesthesia: No Social History Social History Household Members: Family Housing: House Do you presently have visiting nurse or other home services: No Patient Tobacco Use Status: Former Tobacco user Smoked in Last 30 Days: No Use of substances other than those prescribed or required for medical reasons: Yes Substance Use Type: Marijuana Substance Use Frequency: Chronic Longstanding Currently Displaying Signs/Symptoms of Drug Intoxication Withdrawal: No Any prior treatment program specific to substance use: No Have you been hit, kicked, punched, or otherwise hurt by someone within the past year? If so, by whom?: No Are you DNR?: No Advance Directives: No Advance Directives Information Provided: No Do you have a plan to hurt others: No Plan Nutrition Risks: No Nutritional Risk service: No Meds Allergies Allergy/AdvReac Type Severity Reaction Status Date / Time No Known Allergies Allergy Verified 04/03/25 16:43 Home Medications ?Medication ?Instructions ?Recorded ?Confirmed ?Last Taken ?Type No Known Home Meds 04/03/25 04/03/25 Unknown History Exam Exam Date and Time: 04/04/25 1625 Airway Mallampati Class: III (small mouth opening) TM Dist: >3cm Neck ROM: Full Loose/Missing/Broken Teeth: No (patient denies any loose or broken teeth) Heart: S1S2 Lungs: CTAB Assessment and Plan Assessment Anesthesia Assessment: Anesthesia Plan Discussed and Chart Reviewed Final Anesthetic Review Family History of Problems with Anesthesia: No History of Problems with Anesthesia: No NPO: Yes ASA Class: II Final Preanesthetic Review: No Changes in Pt Med Stat, Meds/Allgs Chart Reviewed, Consent Obtained/Reviewed and Anes Risks/Benef Reviewed Patient Risk: Low Procedure Risk: Low Anesthetic Plan Anesthetic Plan: GA and Agree w/ Assess. and Plan Disposition: Standard PACU
--- NOTE | 2025-04-04 16:28 | MHC.SHP ---
Pre-Procedural Eval Section A - 24 Hr Update-Section A only Date of Service: 04/04/25 The patient is an INPATIENT: Yes Changes since office visit: No Cold of Flu in the past 2 weeks, No New Medical Problems, No Changes in Medication and No Patient answered all questions The patient has been examined within 24 hours of the surgical procedure. The History & Physical has been completed within 30 days and I have reviewed it.: Yes Section B - Complete if H&P > 30 days Chief Complaint: stone in proximal aspect right ureter Allergies: Allergies Allergy/AdvReac Type Severity Reaction Status Date / Time No Known Allergies Allergy Verified 04/03/25 16:43 Review of Systems Sugical H&P ROS: Negative: Constitution, Cardiovascular, Respiratory, Neurological, Psychiatric, Hem-Onc, Allergic/Immunologic, Gastrointestinal, Genitourinary, Musculoskeletal, Integumentary, Endocrine and Eyes/Ears/Nose/Throat Exam Surgical H&P Exam: Normal: HEENT, Normal: Heart, Normal: Lungs, Normal: Extremities, Normal: Abdomen, Normal: Skin and Normal: Neurological Plan Diagnosis/Plan: Unchanged (Cystoscopy, right retrograde, right ureteroscopy with laser lithotripsy stent placement) I have reviewed the history and physical and performed a pertinent physical examination on my patient. No changes have occurred unless specified. Time Spent With Patient Time: Total time managing care of this patient today ____ minutes.
--- NOTE | 2025-04-04 17:04 | P.OP_ITS ---
Operative Note Operative Note Date of Service: 04/04/25 Narrative: PreOperative Diagnosis: Right UPJ stone Post Operative Diagnosis: Right UPJ stone Procedure: - cystoscopy, right retrograde - right dilatation of ureteric orifice under fluoroscopy - right flexible ureteroscopy, laser lithotripsy, stone basketing - right stent placement Surgeon: Dr Eduar Sousa Anesthesia: General Indications for procedure: Presents through emergency department 6 mm UPJ obstructing stone. Elevated creatinine. Procedure: After informed consent was verified patient was brought to the operating placed in supine position. Anesthesia was administered per protocol. Patient was placed in modified dorsal lithotomy position and prepped and draped in a sterile fashion. Safety pause time-out and side of surgery confirmed. Antibiotics confirmed. A 22 Arabic cystoscope was inserted per urethra. The urethra and bladder were normal in their entirety. Both ureteric orifices were in normal position. The right ureteric orifice was cannulated and a retrograde examination was performed. Filling defects seen in the ureter with hydro nephrosis. A Sensor guidewire was placed up to the level of the renal pelvis under fluoroscopy. Debris and old blood was released from the renal pelvis around the wire. The rigid cystoscope was removed and the inner cannula of ureteric access sheath was used under fluoroscopy to dilate the ureteric orifice. The ureteric access sheath was placed and the inner cannula with access wire removed. The digital flexible ureteral scope was placed. The stone was encountered in the upper pole where it had been pushed by the sensor wire. A 274 micron holmium laser fiber was used along with a quanta laser in order to break stone into small pieces. A combination of dusting and hammer was used. A 1.9 Arabic 0 tip basket was used to remove stone fragments. At the completion of the stone procedure a Sensor wire was placed back into the renal pelvis. The rigid cystoscope was backloaded over the wire and advanced into the bladder. A 6 Arabic by 24 cm double-J stent was placed into the renal pelvis and bladder under a combination of fluoroscopy and direct visualization. Proximal positioning of the stent was confirmed using fluoroscopy. The bladder was emptied. The patient tolerated the procedure well and was extubated in the operating room, and transferred in stable condition to the recovery area. Pathology: Stones Drains: Stent
[2025-04-05 03:34] VITALS: BP 145/86; PULSE 73; RESP 18; TEMP 36.6; O2SAT 96
--- NOTE | 2025-04-05 05:42 | PC.NURSE ---
Pt with increased hematuria and clots post cystoscopy. Heparin held. Pt also ambulating frequently around room.
[2025-04-05] MEDS: Lactated Ringers 1,000 ML 100 ML IVCONT (05:47)
[2025-04-05 07:13] VITALS: BP 146/94; PULSE 73; RESP 16; TEMP 36.7; O2SAT 97
[2025-04-05 07:29] LABS: Anion Gap 12 (12-20); Blood Urea Nitrogen 21 mg/dL (9-16); Calcium 9.3 mg/dL (8.4-10.2); Carbon Dioxide 24 mmol/L (22-29); Chloride 106 mmol/L (96-108); Creatinine Clr Calc Pharmacy 75.9; Estimated Glomerular Filt Rate 58; Potassium 4.3 mmol/L (3.3-5.1); Sodium 138 mmol/L (135-145)
[2025-04-05 07:58] LABS: MANUAL DIFF FLAG NO
[2025-04-05 08:01] LABS: Hematocrit 36.8 % (42.0-52.0); Hemoglobin 12.0 g/dl (14.0-18.0); Imm Gran Abs Auto 0.03 X10*3/uL (0.00-0.03); Imm Gran Pct Auto 0.3 % (0.0-0.4); Lymphocytes Absolute Auto 1.7 X10*3/uL (1.2-4.9); Mean Corpuscular HGB Conc 32.6 g/dl (31.0-36.0); Mean Corpuscular Hemoglobin 27.1 pg (27.0-33.0); Mean Corpuscular Volume 83.3 fL (80.0-98.0); NRBC Abs Auto 0.000 X10*3/uL (0.0-0.012); NRBC Pct Auto 0.0 /100WBC (0.0-0.2); Platelet Count 300 X10*3/uL (160-400); Red Blood Count 4.42 X10*6/uL (4.60-5.80); White Blood Count 8.9 X10*3/uL (4.8-10.8)
[2025-04-05 11:31] VITALS: BP 146/76; PULSE 78; RESP 16; TEMP 36.4; O2SAT 97
--- NOTE | 2025-04-05 12:01 | PM.DS ---
DS: Providers Provider Date of Service: 04/05/25 Date of admission: 04/03/25 21:04 Date of discharge: 04/05/25 Primary care physician: Unknown Physician Consults: 04/03/25 21:03 Consult to Urology Routine Consulting Provider: [facility] Reason for consultation: stone in proximal aspect right ureter DS: Diagnosis Discharge Diagnosis (1) Nephrolithiasis: Status: Acute DS: Summary Hospital Course Hospital Course: [facility] Complaint: Abdominal pain 34-year-old male with a past medical history of obesity; presented to the hospital with a chief complaint of abdominal pain. Patient mentioned that for the past few days he has been having nausea vomiting and abdominal pain subsequently came to the ER for further evaluation. Patient denies any fever chills cough or sputum production. Denies any blood in the urine. Denies any chest pain or palpitations. Denies any dysuria. Review of all other systems is negative except mentioned above ER course: Per ER team, patient noted to have right flank tenderness; CT scan showed right ureteral stone with hydronephrosis and hydroureter; urology was notified. Also noted a mild RUDDY. Patient was not able to tolerate p.o.. Hospital course: The patient was admitted for management of a kidney stone causing obstructive uropathy and acute kidney injury (RUDDY). He was treated with intravenous fluids and pain medication, and subsequently underwent a series of urologic procedures for a right UPJ stone, including cystoscopy with right retrograde pyelogram, dilation of the right ureteric orifice under fluoroscopy, right flexible ureteroscopy with laser lithotripsy and stone basketing, and placement of a right ureteral stent. By the following day, his RUDDY showed improvement, with creatinine decreasing from 1.83 two days prior, to 1.64 the day before, and 1.41 on the day of discharge; normalization is expected within the next one to two days. He will need to follow up with Urology for stent removal. During his stay, he experienced gas pain, which was managed with simethicone. Repeat labs within a week Time Attestation Discharge Coordination Time (in mins): 35 Quality: Safe Use of Opioids Does Pt have an Active Cancer Diagnosis on the Problem List?: No Quality: Stroke Does the patient have a stroke diagnosis?: No Physical Exam Exam: Exam: General: AO X 3, no acute distress Resp: CTA bilateral CVS: S1,S2,RRR GI: +BS, NT, no distention Skin: No rash Neuro: motor grossly intact Psych: appropriate affect Vital Signs: Vital Signs: Last Vital Signs Temp 97.5 F 04/05/25 11:31 Pulse 78 04/05/25 11:31 Resp 16 04/05/25 11:31 BP 146/76 H 04/05/25 11:31 Pulse Ox 97 04/05/25 11:31 O2 Del Method Room Air 04/05/25 11:31 O2 Flow Rate 4 04/04/25 17:19 BMI result Body Mass Index 40.3 DS: Data Data Completed and Pending Pending studies at discharge: Pending at discharge 04/04/25 17:06 Surgical [PTH] Routine Labs on day of discharge: Laboratory Results - last 24 hr 04/05/25 06:27 WBC 8.9 RBC 4.42 L Hgb 12.0 L Hct 36.8 L MCV 83.3 MCH 27.1 MCHC 32.6 RDW 12.2 Plt Count 300 MPV 10.9 Immature Gran % (Auto) 0.3 Neut % (Auto) 71.5 Lymph % (Auto) 18.6 L Knott % (Auto) 9.0 Eos % (Auto) 0.3 Baso % (Auto) 0.3 Lymph # (Auto) 1.7 Knott # (Auto) 0.8 Eos # (Auto) 0.0 Baso # (Auto) 0.0 Abs Immat Gran (auto) 0.03 Absolute Neuts (auto) 6.3 Absolute Nucleated RBC 0.000 Nucleated RBC % (auto) 0.0 Hold Purple Top SEE NOTE Sodium 138 Potassium 4.3 Chloride 106 Carbon Dioxide 24 Anion Gap 12 BUN 21 H Creatinine 1.41 H Estim Creat Clear Calc 75.9 Estimated GFR 58 Random Glucose 89 Calcium 9.3 Discharge Plan Discharge Anticipated Discharge Date/Time: 04/05/25 12:08 Patient Disposition: Home, Self-Care Discharge Diagnosis: Nephrolithiasis, RUDDY, hematuria Referrals: Eduar Sousa MD [Physician, Urology] - 1 Week Referral Note: Kidney stone, renal failure. Physician,Unknown J [Primary Care Provider, Medical] - 1 Week Discharge Medications: New simethicone 80 mg Tablet,Chewable 80 mg PO QIDWMHS PRN (Reason: Gas) Qty: 20 0RF oxycodone 5 mg Tablet 5 mg PO Q4H PRN (Reason: Pain, Mild (Pain Scale 1-3)) Qty: 12 0RF Rx Instructions: Partial Fill upon patient request. Discharge Orders: Discharge Order (Routine); Ordered 04/05/25 Ordered By: Ion Green Diet: Advance to usual diet Activity on Discharge: As tolerated Stand Alone Forms: Patient Portal Discharge page Print Language: Congolese Other Ambulatory Orders: Basic Metabolic Panel Fasting (Routine) Timeframe: [id number] Facility: [facility] - Location: Laboratory Ordered By: Ion Green Care Plan Goals: Recovery from kidney stone, kidney failure and hematuria. Health Concerns: Kidney failure, hematuria, kidney stone. Plan of Treatment: Drink plenty of fluid, follow-up with urology office for stent removal. Call for appointment Get lab work done within a week to assess your kidney function Follow-up with your primary care physician within a week Assessment: See above [email or web address]
--- NOTE | 2025-04-05 13:11 | MHC.CM.PN ---
PT TO [place] HOME TODAY WITH NO SERVICES VIA PRIVATE TRANSPORT
== END 2025-04-05 13:56 | disposition home or self-care (01) | DRG 446 ==
LOC: HO.ED 20:59 → HO.EDOVER 21:09 → HO.IMC 04-04 00:25
PROVIDERS: Registered Nurse Emergency; Urology; Admitting Provider Hospitalist; Emergency Provider Emergency Medicine; Visit Provider Internal Medicine
PROC: 0TC68ZZ Extirpation of Matter from Right Ureter, Via Natural or Artificial Opening Endoscopic (ICD-10-PCS; principal; 2025-04-04 16:30)
DX: N13.2 Hydronephrosis with renal and ureteral calculous obstruction (principal); N17.9 Acute kidney failure, unspecified; Z87.891 Personal history of nicotine dependence; Z79.899 Other long term (current) drug therapy
CPT/HCPCS: 36415; 74176; 76705; 80048; 80053; 81001; 82365; 83690; 85025; 87086; 99285; C1758; C1769; C2617; J0131; J1100; J1171; J1644; J1885; J1956; J2003; J2250; J2270; J2405; J2704; J3010; J7120; Q9967

== ENCOUNTER → 2025-04-03 16:42 | Outpatient (BNV) | payer MEDICAID, SELFPAY | PROVIDERS: Visit Provider Specialist | DX: N13.2 Hydronephrosis with renal and ureteral calculous obstruction (principal); K76.0 Fatty (change of) liver, not elsewhere classified; R10.811 Right upper quadrant abdominal tenderness | CPT/HCPCS: 74176; 76705 ==

== ENCOUNTER → 2025-04-03 21:04 | Outpatient (BNV) | payer MEDICAID, SELFPAY | PROVIDERS: Admitting Provider Hospitalist; Emergency Provider Emergency Medicine; Visit Provider Internal Medicine | DX: N20.0 Calculus of kidney (principal); R31.0 Gross hematuria | CPT/HCPCS: 99232 ==

== ENCOUNTER → 2025-04-03 21:04 | Outpatient (BNV) | payer MEDICAID, SELFPAY | PROVIDERS: Admitting Provider Hospitalist; Emergency Provider Emergency Medicine; Visit Provider Urology | DX: N20.1 Calculus of ureter (principal) | CPT/HCPCS: 52356; 74420; 99222 ==

== ENCOUNTER 2025-04-10 07:55 | Outpatient (REF) | payer MEDICAID, SELFPAY ==
--- OUTSIDE RECORDS SUMMARY | 2025-04-10 07:58 | XMS_ITS | Clinical Summary ---
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
[2025-04-10 08:39] LABS: Anion Gap 12 (12-20); Blood Urea Nitrogen 19 mg/dL (9-16); Calcium 10.0 mg/dL (8.4-10.2); Carbon Dioxide 27 mmol/L (22-29); Chloride 109 mmol/L (96-108); Estimated Glomerular Filt Rate > 60; Potassium 4.1 mmol/L (3.3-5.1); Sodium 144 mmol/L (135-145)
== END 2025-04-10 07:56 | disposition home or self-care (01) ==
LOC: HO.LAB 07:55
PROVIDERS: Visit Provider Internal Medicine
DX: N17.9 Acute kidney failure, unspecified (principal)
CPT/HCPCS: 36415; 80048

== ENCOUNTER 2025-04-11 08:49 | Outpatient (AMB) | payer MEDICAID, SELFPAY ==
--- NOTE | 2025-04-11 09:08 | MHC.OFFVIS ---
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 He is seen for the following urologic conditions - hematuria - nephrolithiasis Here for stent removal Three-month follow-up renal ultrasound Nephrolithiasis Presented through emergency room with nausea, vomiting and right-sided flank pain Labs with creatinine 1.8 Imaging - CT - 6 mm obstructing stone in proximal aspect right ureter with mild right hydroureter and hydronephrosis and perinephric stranding.There are 2 punctate 1 mm nonobstructing stones in the upper and mid poles of the left kidney Intervention - 04/19 ureteroscopy Encourage fluid intake Three-month follow-up ultrasound imaging [facility] Medical History (Updated 04/05/25 @ 12:12 by Ino Green MD) No pertinent past medical history Surgical History (Updated 04/04/25 @ 14:54 by Ban Shipman RN) Hx of cystoscopy Social History Household Members: Family Housing: House Do you presently have visiting nurse or other home services: No Patient Tobacco Use Status: Former Tobacco user Substance Use Type: Marijuana service: No Review of Systems Const Denies chills and Denies fever(s) Card Reports no additional complaints and Denies syncope Resp Denies cough GI Denies abdominal pain and Denies heartburn Reports as per HPI and Denies change in libido Neuro Denies syncope Psych Denies change in libido Endo Denies change in libido Physical Exam Const General: cooperative, healthy appearing, comfortable and no acute distress Orientation/consciousness: patient oriented x3 HEENT Face and sinus: Yes normal facial exam Mouth: moist mucous membranes Neck Neck: Yes normal visual inspection, Yes full ROM and Yes trachea midline Chest Chest palpation & inspection: normal inspection of the chest Resp Effort & Inspection: normal respiratory effort, able to speak in complete sentences and no respiratory distress GI Inspection: Yes normal to inspection Back/Spine/Pelvis Cervical Spine: normal cervical lordosis Thoracic/Lumbar Spine: thoracic and lumbar spine normal to inspection Skin General skin exam: no rashes or lesions noted Neuro General: patient oriented x3, gait normal, tone normal and moves all extremities Extrem General: Yes normal to inspection and Yes capillary refill normal Office Procedures Cystoscopy Consent Discussed risk and benefit or proposed procedure with the patient. Information consent for procedure given to the patient. Discussed technical aspects, risks, benefits and alternatives in full. Addressed all of the patient's questions and concerns regarding the procedure. The patient demonstrated knowledge and understanding. They wish to proceed with this procedure. Preparation The patient was prepped in the usual manner. A shearing shed hand was present and in the room. Genitalia was prepped with betadine solution in a sterile manner. Lidocaine Jelly 2% was placed into the urethra and 16Fr flexible Olympus cystoscope was inserted into the meatus after adequate lubrication. Procedure A well lubricated 16 Slovak cystoscope was placed No abnormality noted of urethra during placement Indwelling stent seen within bladder emerging from right ureteric orifices The stent was grasped with a 3 prong grasper and removed without difficulty The patient tolerated the procedure well [id number] with stent removal DISPOSABLE SCOPE URO-G FLEXIBLE SCOPE Procedure code (CPT) selection complete Office Meds lidocaine HCl 2 % mucosal jelly in applicator Performing Provider: Eduar Sousa MD Performing Location: [facility] Administered by: Yan Ocampo LPN on 04/11/25 09:08 Dose Route Admin Location Dispensed Lot Number Expiration Date [employer] [facility] 10 mL intra-urethral 10 mL nitrofurantoin monohydrate/macrocrystals 100 mg capsule Performing Provider: Eduar Sousa MD Performing Location: [facility] Administered by: Yan Ocampo LPN on 04/11/25 09:08 Dose Route Admin Location Dispensed Lot Number Expiration Date [facility] 100 mg PO 1 cap naproxen 500 mg tablet Performing Provider: Eduar Sousa MD Performing Location: [facility] [place] Administered by: Yan Ocampo LPN on 04/11/25 09:08 Dose Route Admin Location Dispensed Lot Number Expiration Date [facility] 500 mg PO 1 tab Results AMB Urinalysis, Automated UA Leukoctes 125 Jimmie/uL Last Edit by JAIME Ellington on 04/11/25 09:11 UA Nitrite Last Edit by JAIME Ellington on 04/11/25 09:11 UA Urobilinogen 0.2 mg/dL Last Edit by JAIME Ellington on 04/11/25 09:11 UA Protein 30 mg/dL Last Edit by JAIME Ellington on 04/11/25 09:11 UA pH 6.0 Last Edit by JAIME Ellington on 04/11/25 09:11 UA Blood 200 Suleman/uL Last Edit by JAIME Ellington on 04/11/25 09:11 UA Specific Sula 1.020 Last Edit by JAIME Ellington on 04/11/25 09:11 UA Ketone Last Edit by JAIME Ellington on 04/11/25 09:11 UA Bilirubin 0 mg/dL Last Edit by JAIME Ellington on 04/11/25 09:11 UA Glucose 0 mg/dL Last Edit by JAIME Ellington on 04/11/25 09:11 Results Reviewed Results Reviewed: Laboratory Last Values Urine pH (Auto) 6.0 04/11/25 09:10 Specific Sula (Auto) 1.020 04/11/25 09:10 Urine Protein (Auto) 30 mg/dL 04/11/25 09:10 Glucose (UA)(Auto) 0 mg/dL 04/11/25 09:10 Urine Blood (Auto) 200 Suleman/uL 04/11/25 09:10 Urine Bilirubin (Auto) 0 mg/dL 04/11/25 09:10 Urine Urobilinogen (Auto) 0.2 mg/dL 04/11/25 09:10 Leukocyte Esterase (Auto) 125 Jimmie/uL 04/11/25 09:10 Assessment & Plan Assessment & Plan (1) Nephrolithiasis: Code(s): N20.0 - Calculus of kidney Category: Medical Plan Three-month follow-up renal ultrasound Orders: Orders AMB Urinalysis Automated Today Z13.9 - Encounter for screening, unspecified US renal BI 3 Months N20.0 - Calculus of kidney AMB Cystoscopy Today N20.0 - Calculus of kidney Patient Instructions: This note is constructed using voice recognition software. While every effort has been made to ensure accuracy natural resource technician errors may have been included. Imaging studies, laboratory and physical exam results were discussed and reviewed in detail. No major barriers to patient understanding were identified. An opportunity to ask questions regarding the treatment plan was provided. All questions were answered. The patient expressed understanding and agreement with the above treatment plan. The patient is aware they should contact our office by phone for worsening of their current condition or the appearance of new urologic symptoms. Compliance is encouraged with any medications and followup testing that is ordered. It is a privilege to participate in the urologic care of your patient. If you have any questions or concerns regarding treatment for the above conditions, or other urologic issues, please do not hesitate to contact me. The office telephone contact is [phone]. Sincerely, Dr Eduar Sousa MD, [facility] - Urology Compassionate Specialist Care for the Genitourinary System Coding Level of Care Code Est Pt Level 3 (86522) Diagnoses Nephrolithiasis N20.0 CPT Codes Cystoscopy - CPT: 71148-[id number] with stent removal ([id number])
--- OUTSIDE RECORDS SUMMARY | 2025-04-11 09:21 | XMS_ITS | Clinical Summary ---
Author Organization [employer] Address [address] [facility] [address] [place] [address] Care Team Providers Care Slp Name Role Phone Unavailable Primary Care Provider [...]
== END 2025-04-11 09:36 | disposition home or self-care (01) ==
LOC: HO.HUSH 08:50
PROVIDERS: Visit Provider Urology
DX: N20.0 Calculus of kidney (principal)
CPT/HCPCS: 52310; 99213

== ENCOUNTER → 2025-04-11 08:49 | Outpatient (BNVA) | payer MEDICAID, SELFPAY | PROVIDERS: Visit Provider Urology | DX: N20.0 Calculus of kidney (principal) | CPT/HCPCS: 52310; 81003; 99212 ==